=== PATIENT | male | born 1995 | race African-American/Black ===

== ENCOUNTER 2024-04-03 12:12 | Emergency (ER) | payer MEDICAID, SELFPAY ==
[2024-04-03 12:32] VITALS: BP 122/77; PULSE 93; RESP 18; TEMP 37.3; O2SAT 98; BMI 29.3
--- NOTE | 2024-04-03 12:32 | ED_ITS ---
HPI - Anxiety General Chief Complaint: Anxiety Stated Complaint: Anxiety Time Seen by Provider: 04/03/24 13:50 Source: patient and RN notes reviewed Mode of arrival: ambulatory Limitations: no limitations History of Present Illness ED Provider: Silvia Kahn PA-C HPI narrative: This is a 28-year-old male, who presents emergency department, accompanied by his , with complaints of increased stress and depression. He denies any SI or HI. He states that he drinks daily, and has drank daily for many years. no history of alcohol withdrawal. He states that he typically drinks about 1 pt per day, denies ever seeking help for this. Admits to recent stressors over the last several months but does not elaborate further about this. He reports that he occasionally becomes very anxious and develops numbness and tingling in his face - reports that this happened today. No chest pain, shortness of breath, headaches, dizziness, blurred vision, abdominal pain, nausea, vomiting or diarrhea. Denies having a PCP. No SI/HI, no auditory or visual hallucinations. No other complaints or concerns at this time. MD complaint: anxiety History of similar episodes: Yes Provoking factors: emotional stress Relieving factors: nothing Exacerbating factors: nothing Associated symptoms: denies other symptoms Related Data Allergies Allergy/AdvReac Type Severity Reaction Status Date / Time No Known Allergies Allergy Verified 04/03/24 12:34 Review of Systems 2 Review of Systems: Yes all other systems are reviewed and are negative Constitutional: Constitutional: Reports as per HPI [facility] Social History Social History Alcohol intake: current Alcohol intake frequency: 3 or more drinks per day Alcohol type: hard liquor Smoked in Last 30 Days: Yes Advance Directives: No Advance Directives Information Provided: Yes Physical Exam 2 Vital Signs: Vital Signs: Last Vital Signs Temp 98.4 F 04/03/24 16:50 Pulse 92 04/03/24 16:50 Resp 18 04/03/24 16:50 BP 143/95 H 04/03/24 16:50 Pulse Ox 100 04/03/24 16:50 O2 Del Method Room Air 04/03/24 16:50 BMI result Body Mass Index 29.3 Const: General: cooperative, comfortable and no acute distress O rientation/consciousness: patient oriented x3 Limitations: no limitations HEENT: Head: Yes normal to inspection, Yes normocephalic and Yes atraumatic Ears: hearing grossly normal bilaterally General nose exam: Normal external nose present Face and sinus: Yes normal facial exam Mouth: Normal oral and palatal mucosa present, oropharynx normal and moist mucous membranes Throat: Yes posterior oropharynx normal Eyes: General: appearance normal, both eyes and all related structures E yelids: Yes eyelids normal Conjunctivae: conjunctivae normal Sclerae: s clerae normal Pupils: Equal, round and reactive pupils present EOM: EOMs intact bilaterally Neck: Neck: Yes normal visual inspection, Yes full ROM and Yes no lymphadenopathy Lymphatic: no lymphadenopathy noted Chest: Chest palpation & inspection: normal inspection of the chest Resp: Effort & Inspection: normal respiratory effort and able to speak in complete sentences Auscultation: clear to auscultation bilaterally, no crackles, no rales, no rhonchi and no wheezes Cardio: Rate: regular rate Rhythm: regular rhythm Heart sounds: S1 normal heart sound present and S2 normal heart sound present GI: Inspection: Yes normal to inspection Skin: General skin exam: no rashes or lesions noted Trauma: no lacerations or abrasions Wounds: no wounds Neuro: General: patient oriented x3 and moves all extremities Cranial nerves: Yes Equal, round and reactive pupils present Extrem: General: Yes normal to inspection Right upper extremity: normal to inspection Left upper extremity: normal to inspection Right lower extremity: normal to inspection Left lower extremity: normal to inspection Psych: Appearance: grossly normal Mental Status: mental status grossly normal Speech and movement: Normal speech and movement present Affect: n ormal affect Attitude: cooperative Thought process: Normal thought process present Thought content: Normal thought content present Insight: Fair insight present (Psych) Judgement: Fair judgement present (Psych) Course Course Course Narrative: This is a Rapid Medical Examination (RME) performed by Andrez Ramos PA-C in triage. Full HPI, ROS, assessment and treatment plan per primary provider in the Main ED. 28 yo male presents to the ER for evaluation of really bad anxiety for the last 1 month. He is going through a lot of personal things and is depressed with severe anxiety. At work today and had numbness in the face and shaking all over which has been present intermittently over the last month but worse today and he can't function. No SI. No medical or psych history. Endorses ETOH use daily, last was last night. no hx w/d in the past. Plan: medical work up, may need CARE team evaluation for debilitating anxiety Medications Administered Discontinued Medications Generic Name Dose Route Start Last Admin Trade Name Claudio PRN Reason Stop Dose Admin Lorazepam 2 mg 04/03/24 16:09 04/03/24 16:24 Lorazepam 1 Mg Tablet PO 04/03/24 16:10 2 mg ONCE ONE Administration Medical Decision Making Medical Decision Making [facility] Narrative: This is a [id number]-male, with a hx of alcohol use disorder, who presents to the ER with complaints of increased anxiety. He has been under alot of stress lately. Reporting that he drinks 1 pt of hard alcohol daily for years - last drink was yesterday. No hx of known withdrawal. No other drug use. no SI/HI. No CP/SOB. Physical examination with no acute findings. Labs, EKG normal. Discussed workup with patient. Given hx of etoh use and interest for detox/services, pt was seen by the care team. He was cleared by the care team.Pt was seen by Moraima Acosta from addiction medicine and will f/u with outpatient services. He does not appear to be in etoh withdrawal at this time as his only complaint is increased anxiety > he was given ativan. Given strict return precautions. Pt stable for d/c. Differential Diagnosis Differential Diagnoses: The differential diagnosis associated with the presentation includes etoh withdrawal, etoh dependency, depression., anxiety. metabolic derangement Admission/Observation Consideration of admission/observation: Escalation of care including admission/observation considered Escalation of care including admission/observation considered however given workup today not warranted at this time. Lab Data [facility] Lab Attestation statement: I reviewed the patient's lab results. No leukocytosis, H&H stable, UA WNL. drug screen WNL. etoh level <10 04/03/24 13:06 04/03/24 13:06 Labs: Lab Results 04/03/24 Range/Units 13:06 WBC 6.8 (4.8-10.8) X10*3/uL RBC 5.00 (4.60-5.80) X10*6/uL Hgb 15.9 (14.0-18.0) g/dl Hct 45.9 (42.0-52.0) % MCV 91.8 (80.0-98.0) fL MCH 31.8 (27.0-33.0) pg MCHC 34.6 (31.0-36.0) g/dl RDW 11.7 (11.0-16.0) % Plt Count 230 (160-400) X10*3/uL MPV 11.4 (9.4-12.4) fL Immature Gran % (Auto) 0.3 (0.0-0.4) % Neut % (Auto) 82.3 H (45-73) % Lymph % (Auto) 10.2 L (20-40) % [place] % (Auto) 6.9 (2-11) % Eos % (Auto) 0.0 (0-4) % Baso % (Auto) 0.3 (0-2) % Lymph # (Auto) 0.7 L (1.2-4.9) X10*3/uL [place] # (Auto) 0.5 (0.1-1.2) X10*3/uL Eos # (Auto) 0.0 (0.0-0.4) X10*3/uL Baso # (Auto) 0.0 (0.0-0.2) X10*3/uL Abs Immat Gran (auto) 0.02 (0.00-0.03) X10*3/uL Absolute Neuts (auto) 5.6 (2.0-8.3) x10*3/uL Absolute Nucleated RBC 0.000 (0.0-0.012) X10*3/uL Nucleated RBC % (auto) 0.0 (0.0-0.2) /100WBC Sodium 141 (135-145) mmol/L Potassium 4.3 (3.3-5.1) mmol/L Chloride 107 (96-108) mmol/L Carbon Dioxide 24 (22-29) mmol/L Anion Gap 14 (12-20) BUN 10 (9-16) mg/dL Creatinine 1.02 (0.5-1.4) mg/dL Estim Creat Clear Calc 119.6 Estimated GFR > 60 Random Glucose 98 (60-115) mg/dL Calcium 10.1 (8.4-10.2) mg/dL Magnesium 1.9 (1.6-2.6) mg/dL Total Bilirubin 0.6 (0.0-1.0) mg/dL Direct Bilirubin 0.3 (0.0-0.5) mg/dL AST 22 (5-37) U/L ALT 24 (0-40) U/L Alkaline Phosphatase 83 (39-117) U/L Total Protein 7.2 (6.5-8.0) g/dL Albumin 4.4 (3.5-5.0) g/dL Urine Color Yellow Urine Appearance Clear Urine pH >= 9.0 (5.0-9.0) Ur Specific [place] 1.020 (1.005-1.025) Urine Protein 30 (1+) H (Neg-Trace) mg/dL Urine Glucose (UA) Negative (Negative) mg/dL Urine Ketones Negative (Negative) mg/dL Urine Blood Negative (Negative) Urine Nitrite Negative (Negative) Ur Leukocyte Esterase Negative (Negative) Urine RBC 0-2 (0-2) /HPF Urine WBC 0-5 (0-5) /HPF Ur Squamous Epith Cells 0-2 (0-2) /HPF Urine Bacteria None Seen (None Seen) Hyaline Casts 0-2 (0-2) /LPF Urine Opiates Screen Not Detected (Not Detect) Ur Buprenorphine Scrn Not Detected (Not Detect) ng/mL Ur Oxycodone Screen Not Detected (Not Detect) ng/mL Urine Methadone Screen Not Detected (Not Detect) ng/mL Urine Fentanyl Screen Not Detected (Not Detect) Ur Barbiturates Screen Not Detected (Not Detect) Ur Phencyclidine Scrn Not Detected (Not Detect) Ur Amphetamines Screen Not Detected (Not Detect) U Benzodiazepines Scrn Not Detected (Not Detect) Urine Cocaine Screen Not Detected (Not Detect) U Marijuana (THC) Screen Not Detected (Not Detect) Ethyl Alcohol < 10 mg/dL Discharge Plan Discharge Clinical Impression: Acute anxiety, Alcohol use disorder Patient Disposition: Home, Self-Care Instructions: Anxiety (ED), Alcohol Use Disorder (ED) Additional Instructions: You were seen in the emergency department due to increased anxiety as well as alcohol use. Your workup today was reassuring. Please follow-up with the comprehensive care team tomorrow. If any new or worsening symptoms occur including but not limited to chest pain, shortness of breath increased anxiety, please return for re-evaluation. Stand Alone Forms: Work/School Release Interventions: ED Discharge Assessment Last Done: 04/03/24 16:50 Discharge Date/Time: 04/03/24 16:51 Print Language: Welsh
[2024-04-03 13:14] LABS: MANUAL DIFF FLAG NO
[2024-04-03 13:18] LABS: Basophils Percent Auto 0.3 % (0-2); Hematocrit 45.9 % (42.0-52.0); Hemoglobin 15.9 g/dl (14.0-18.0); Imm Gran Abs Auto 0.02 X10*3/uL (0.00-0.03); Imm Gran Pct Auto 0.3 % (0.0-0.4); Lymphocytes Absolute Auto 0.7 X10*3/uL (1.2-4.9); Lymphocytes Percent Auto 10.2 % (20-40); Mean Corpuscular HGB Conc 34.6 g/dl (31.0-36.0); Mean Corpuscular Hemoglobin 31.8 pg (27.0-33.0); Mean Corpuscular Volume 91.8 fL (80.0-98.0); Mean Platelet Volume 11.4 fL (9.4-12.4); Monocytes Absolute Auto 0.5 X10*3/uL (0.1-1.2); Monocytes Percent Auto 6.9 % (2-11); Neutrophils Absolute Auto 5.6 x10*3/uL (2.0-8.3); Neutrophils Percent Auto 82.3 % (45-73); Platelet Count 230 X10*3/uL (160-400); Red Cell Distribution Width 11.7 % (11.0-16.0); White Blood Count 6.8 X10*3/uL (4.8-10.8)
[2024-04-03 13:19] LABS: Appearance Urine Clear; Color Urine Yellow; Glucose Urine UA Negative (Negative); Leukocyte Esterase Urine Negative (Negative); Nitrite Urine Negative (Negative); PH >= 9.0 (5.0-9.0); UMIC TRIGGER UACC YES; Urine Blood Negative (Negative); Urine Ketones Negative (Negative); Urine Protein 30 (1+) mg/dL (Neg-Trace)
[2024-04-03 13:25] LABS: Bacteria Urine None Seen (None Seen); Hyaline Casts Urine 0-2 /LPF (0-2); RBC Urine 0-2 /HPF (0-2); Squamous Epithelial Cell Urine 0-2 /HPF (0-2); WBC Urine 0-5 /HPF (0-5)
--- NOTE | 2024-04-03 13:33 | PC.NURSE ---
patient arrives through external triage from home, complaining of increased drinking and depression and anxiety, requesting detox and to speak with care team. changed over into hospital attire by security, family at bedside took phone, vape and keys,
[2024-04-03 13:35] LABS: Amphetamine Screen Urine Not Detected (Not Detect); Barbiturates, Urine Not Detected (Not Detect); Benzodiazepines Screen Urine Not Detected (Not Detect); Buprenorphine Scr Not Detected (Not Detect); Cannabinoid Screen Urine Not Detected (Not Detect); Cocaine Screen Urine Not Detected (Not Detect); Fentanyl, urine Not Detected (Not Detect); Methadone Screen, Urine Not Detected (Not Detect); Opiate Screen Urine Not Detected (Not Detect); Oxycodone Screen Urine Not Detected (Not Detect); Phencyclidine Screen Urine Not Detected (Not Detect)
[2024-04-03 14:00] VITALS: BP 135/68; PULSE 110; RESP 17; TEMP 36.8; O2SAT 97
[2024-04-03 14:00] LABS: Ethanol < 10 mg/dL
[2024-04-03 14:47] LABS: Alanine Aminotransferase 24 U/L (0-40); Albumin Level 4.4 g/dL (3.5-5.0); Alkaline Phosphatase 83 U/L (39-117); Anion Gap 14 (12-20); Aspartate Amino Transferase 22 U/L (5-37); Bilirubin Direct 0.3 mg/dL (0.0-0.5); Bilirubin Total 0.6 mg/dL (0.0-1.0); Blood Urea Nitrogen 10 mg/dL (9-16); Calcium 10.1 mg/dL (8.4-10.2); Carbon Dioxide 24 mmol/L (22-29); Chloride 107 mmol/L (96-108); Creatinine Clr Calc Pharmacy 119.6; Estimated Glomerular Filt Rate > 60; Glucose Random 98 mg/dL (60-115); Magnesium 1.9 mg/dL (1.6-2.6); Potassium 4.3 mmol/L (3.3-5.1); Sodium 141 mmol/L (135-145); Total Protein 7.2 g/dL (6.5-8.0)
--- NOTE | 2024-04-03 15:12 | MHC.CARE ---
This scenario writer met with patient who is requesting detox. Patient expressed increased depression and anxiety due to alcohol use. Patient reported that he drinks a pint of alcohol every day to every other day. Patient reported that this has been going on for approximately 1 year. Patient reported that his last drink was last night around midnight. Patient does not have a hx of seizures. Patients girlfriend stated that patient has been shaky and not being able to stay still at times. Patient reported that he hasn't been able to sleep due to this. Patient repored that the longest time he went without a drink was a month ago, and didn't drink for a week or 2 and felt crappy during those weeks. Patient denies any SI. Patient was given a patient resource booklet and educated on detox facilities in the area, as well as additional resources. Provider aware of patients symptoms and will evaluate.
[2024-04-03 16:00] VITALS: BP 143/95; PULSE 92; RESP 18; TEMP 36.9; O2SAT 100
[2024-04-03] MEDS: LORazepam 1 MG TABLET 2 MG PO (16:24)
--- NOTE | 2024-04-03 16:29 | MHC.RECOVRN ---
?AUDIT-C Brief Intervention Pt had positive screen for unhealthy alcohol use on admission, subsequently met with t/w to discuss alcohol use and recovery supports/options. Pt voices concern regarding alcohol use and is aware that drinking at unhealthy levels is known to increase risk of alcohol related health problems. Pt reports 1 pint of liquor daily for years . Pt expresses how alcohol use has impacted health, including negative impact on his sleep, and social life. Discussed risk reduction strategies including drinking below the recommended limit. Provided pt with written resources including information on inpatient and outpatient treatment, NIKKIE, harm reduction, and recovery coaching. Pt plans to to present to our office as a walk in for treatment. Pt provided with t/w contact information if questions or concerns arise. Denies other questions or concerns at this time.
[2024-04-03 16:50] VITALS: BP 143/95; PULSE 92; RESP 18; TEMP 36.9; O2SAT 100
== END 2024-04-03 16:51 | disposition home or self-care (01) ==
PROVIDERS: Physician Assistant; Emergency Provider Emergency Medicine
DX: F41.1 Generalized anxiety disorder (principal); F10.10 Alcohol abuse, uncomplicated; Y90.0 Blood alcohol level of less than 20 mg/100 ml; Z63.8 Other specified problems related to primary support group; Z79.899 Other long term (current) drug therapy; Z51.81 Encounter for therapeutic drug level monitoring
CPT/HCPCS: 36415; 80048; 80076; 80307; 81001; 83735; 85025; 99284

== ENCOUNTER 2024-04-04 15:11 | Outpatient (AMB) | payer MEDICAID, SELFPAY ==
--- NOTE | 2024-04-04 15:53 | A.OFFVISCC_ITS ---
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, so he does not drink until later in the evenings is very supportive Was in our ED earlier this week seeking treatment and seen by our Recovery Support RN [facility] Social History Household Members: Significant Other and Children Housing: Apartment Do you presently have visiting nurse or other home services: No Alcohol intake: current Alcohol intake frequency: 3 or more drinks per day Alcohol type: beer and hard liquor Patient Tobacco Use Status: Current everyday Tobacco user Tobacco use type: Cigarette and Smokeless Tobacco Years Smoked: 1 Smoked in Last 30 Days: Yes e-Cigarette/Vaping Use: Currently Using Frequency of e-Cigarette/Vaping Use: daily Patient Interested in Nicotine Replacement: Yes Patient Given Instructions on How to Stop Smoking: Yes Date Education Initiated: 04/13/24 Second Hand Smoke Exposure: No Use of substances other than those prescribed or required for medical reasons: No Currently Displaying Signs/Symptoms of Drug Intoxication Withdrawal: No Any prior treatment program specific to substance use: No Have you been hit, kicked, punched, or otherwise hurt by someone within the past year? If so, by whom?: No Do you feel safe in your current relationship?: Yes Is there a partner from a previous relationship who is making you feel unsafe now?: No Are you made to feel afraid or neglected: No Advance Directives: No Advance Directives Information Provided: No Do you have thoughts of harming others: None Do you have a plan to hurt others: No Plan Recently lost weight without trying: Yes How much weight loss: 24-33 pounds Eating poorly because of decreased appetite: No Nutrition screen score: 5 Nutrition Risks: No Nutritional Risk Poor oral hygiene: No Review of Systems Const Reports as per HPI, Reports difficulty sleeping and Reports lethargy GI Denies melena, Denies loose stools and Denies vomiting Psych Reports anxiety, Reports depression, Reports difficulty concentrating and Reports anhedonia Physical Exam Const General: cooperative, no acute distress, alert, awake, anxious and well groomed Nutritional Appearance: average body habitus Orientation/consciousness: patient oriented x3 Limitations: no limitations Skin General skin exam: no rashes or lesions noted Neuro General: patient oriented x3 Psych Speech and movement: Clear speech present Affect: Blunted affect present Attitude: cooperative Thought process: Normal thought process present Assessment & Plan Assessment & Plan (1) Alcohol use disorder, severe, dependence: Code(s): F10.20 - Alcohol dependence, uncomplicated Category: Medical Plan: * discussed different options for treatment and at this time patient wishes to taper intake with goal of discontinuing * discussed importance of going slowly and monitoring for withdrawal sx * gabapentin to assist with anxiety as he decreases * naltrexone daily * follow up one week with RN Medications: New gabapentin 100 mg PO TID PRN 30 caps 0RF anxiety naltrexone take 1/2 tab daily for 3 days, then increase to one tab daily 50 mg PO DAILY 30 tabs 0RF MAT Intake Nursing Intake Reason for visit: looking to detox off alcohol Are you currently using?: Yes What are you taking?: Alcohol When was your last use?: this morning How much?: 4 nips 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 [place] What is your current relationship status?: Current PCP: None Date of last visit: more than 5 years Referral Source: [facility] Substance Abuse History Substance Abuse History (includes route, frequency and quantity): Marijuana (socially) and Tobacco (Vapes daily) Social History Domestic Violence concerns: No Children: yes 2 Do you have a support system?: Yes family Current mode of transportation?: drives Where are you currently residing?: [place] home [place] Drug Use Have you ever shared needles?: No Have you ever belonged to a needle exchange program?: No Do you buy needles at a pharmacy?: No Have you ever overdosed?: No Have you ever been hospitalized for an overdose?: No Was Naloxone administered?: No Recovery History Have you had any periods of recovery?: No Have you ever had inpatient treatment for your substance abuse disorder?: No Have you been in an inpatient detoxification program?: No Have you been in an inpatient Rehab/[place] house?: No Have you been in an outpatient Methadone Maintenance program?: No Have you been in an outpatient Suboxone Maintenance program?: No Have you been in an AA/NA support program?: No Have you had a Recovery Support Synthetic Staple Extruder?: No Have you had Peer Support?: No Behavioral Health History Do you have a current provider? If so, who?: No History of self harming thoughts?: No History of homicidal or suicidal intentions?: No Medical Conditions Endocarditis?: No Skin Infection: No Seizure related to withdrawal or overdose: No Head or brain injury: No Hepatitis A (if yes, have you been treated?): No Hepatitis B (if yes, have you been treated?): No Hepatitis C (if yes, have you been treated?): No HIV (if yes, have you been treated?): No TB (if yes, have you been treated?): No Other: No Legal History History of incarceration: No Currently on parole or probation: No Court mandated programs: No Pending court cases: No DCF involvement: No
== END 2024-04-04 16:21 | disposition home or self-care (01) ==
PROVIDERS: Visit Provider Nurse Practitioner Psychiatric/Mental Health
DX: F10.20 Alcohol dependence, uncomplicated (principal)
CPT/HCPCS: 99214

== ENCOUNTER → 2024-04-04 15:11 | Outpatient (BNVA) | payer SELFPAY | PROVIDERS: Visit Provider Nurse Practitioner Psychiatric/Mental Health | DX: F10.20 Alcohol dependence, uncomplicated (principal) | CPT/HCPCS: 99212 ==

== ENCOUNTER 2024-04-13 11:50 | Inpatient (IN) | payer OTHER, SELFPAY ==
[2024-04-13 12:16] VITALS: BP 127/96; PULSE 109; RESP 20; TEMP 36.9; O2SAT 96; BMI 28.8
--- NOTE | 2024-04-13 12:16 | ED.ANXIETY ---
HPI - Anxiety General Chief Complaint: Psychiatric Symptoms Stated Complaint: anxiety Time Seen by Provider: 04/13/24 14:08 Related Data Home Medications ?Medication ?Instructions ?Recorded ?Confirmed gabapentin 100 mg capsule 100 mg PO TID PRN anxiety 04/13/24 04/13/24 Previous Rx's ?Medication ?Instructions ?Recorded hydroxyzine pamoate 25 mg capsule 25 mg PO TID PRN itching #20 caps 04/10/24 Allergies Allergy/AdvReac Type Severity Reaction Status Date / Time No Known Allergies Allergy Verified 04/13/24 12:19 [facility] Social History Social History Alcohol intake: current Alcohol intake frequency: 3 or more drinks per day Alcohol type: beer and hard liquor Smoked in Last 30 Days: No Use of substances other than those prescribed or required for medical reasons: Refusing to respond Advance Directives: No Advance Directives Information Provided: No Do you have a plan to hurt others: No Plan Physical Exam Vital Signs: Vital Signs: Last Vital Signs Temp 98.5 F 04/13/24 12:16 Pulse 109 H 04/13/24 12:16 Resp 16 04/13/24 14:14 BP 127/96 H 04/13/24 12:16 Pulse Ox 96 04/13/24 12:16 O2 Del Method Room Air 04/13/24 12:16 BMI result Body Mass Index 28.8 Course Course Course Narrative: This is a Rapid Medical Exam performed in triage by Radha Luna PA-C. Full HPI, ROS and PE to be performed by primary ED provider. 28 yo M with a PMH of alcohol use disorder presenting to the ED c/o increased anxiety. Reports recent stressors at home. Feelings of sadness and depression. Reports daily alcohol use of 12 nips per day. Last drink 5 minutes ago. Denies hx of withdrawl or seizures. Was seen upstairs with addiction medicine prior to arrival to the ED. Patient is interested in detox. Denies SI. PE: sad, soft spoken, nontoxic appearing Plan: Care team, labs, tox screen, detox Reevaluation(s) Reevaluation #1: Head patient is seen by the care team and will be an inpatient admission. He will be sending a conditional voluntary Time: 17:22 Medications Administered Discontinued Medications Generic Name Dose Route Start Last Admin Trade Name Freq PRN Reason Stop Dose Admin Chlordiazepoxide HCl 100 mg 04/13/24 14:09 04/13/24 14:51 Chlordiazepoxide Hcl 25 Mg Capsule PO 04/13/24 14:10 100 mg ONCE ONE Administration Medical Decision Making Medical Decision Making [facility] Narrative: Labs checked patient seemed to be intoxicated with alcohol I will give Librium we will give another 100 Librium at this time patient is still pending care team evaluation was seen by addiction medicine feels the patient will benefit coming inpatient for depression anxiety I will sign out to Dr. Fonseca pending disposition. Differential Diagnosis Differential Diagnoses: The differential diagnosis associated with the presentation includes Alcohol abuse depression anxiety Lab Data 04/13/24 12:34 04/13/24 12:34 Labs: Lab Results 04/13/24 04/13/24 Range/Units 12:34 14:31 WBC 5.6 (4.8-10.8) X10*3/uL RBC 5.19 (4.60-5.80) X10*6/uL Hgb 16.8 (14.0-18.0) g/dl Hct 48.1 (42.0-52.0) % MCV 92.7 (80.0-98.0) fL MCH 32.4 (27.0-33.0) pg MCHC 34.9 (31.0-36.0) g/dl RDW 11.8 (11.0-16.0) % Plt Count 227 (160-400) X10*3/uL MPV 11.0 (9.4-12.4) fL Immature Gran % (Auto) 0.2 (0.0-0.4) % Neut % (Auto) 58.5 (45-73) % Lymph % (Auto) 27.7 (20-40) % [place] % (Auto) 11.8 H (2-11) % Eos % (Auto) 1.4 (0-4) % Baso % (Auto) 0.4 (0-2) % Lymph # (Auto) 1.6 (1.2-4.9) X10*3/uL [place] # (Auto) 0.7 (0.1-1.2) X10*3/uL Eos # (Auto) 0.1 (0.0-0.4) X10*3/uL Baso # (Auto) 0.0 (0.0-0.2) X10*3/uL Abs Immat Gran (auto) 0.01 (0.00-0.03) X10*3/uL Absolute Neuts (auto) 3.3 (2.0-8.3) x10*3/uL Absolute Nucleated RBC 0.000 (0.0-0.012) X10*3/uL Nucleated RBC % (auto) 0.0 (0.0-0.2) /100WBC Sodium 143 (135-145) mmol/L Potassium 4.1 (3.3-5.1) mmol/L Chloride 108 (96-108) mmol/L Carbon Dioxide 24 (22-29) mmol/L Anion Gap 15 (12-20) BUN 11 (9-16) mg/dL Creatinine 0.94 (0.5-1.4) mg/dL Estim Creat Clear Calc 128.8 Estimated GFR > 60 Random Glucose 94 (60-115) mg/dL Calcium 9.6 (8.4-10.2) mg/dL Magnesium 2.1 (1.6-2.6) mg/dL Total Bilirubin 0.4 (0.0-1.0) mg/dL Direct Bilirubin 0.2 (0.0-0.5) mg/dL AST 26 (5-37) U/L ALT 24 (0-40) U/L Alkaline Phosphatase 78 (39-117) U/L Total Protein 7.5 (6.5-8.0) g/dL Albumin 4.5 (3.5-5.0) g/dL Lipase 11 (8-78) U/L Urine Color Yellow Urine Appearance Clear Urine pH 6.5 (5.0-9.0) Ur Specific [place] 1.020 (1.005-1.025) Urine Protein Negative (Neg-Trace) mg/dL Urine Glucose (UA) Negative (Negative) mg/dL Urine Ketones Negative (Negative) mg/dL Urine Blood Negative (Negative) Urine Nitrite Negative (Negative) Ur Leukocyte Esterase Negative (Negative) Salicylates < 5.0 L (15-30) mg/dL Urine Opiates Screen Not Detected (Not Detect) Ur Buprenorphine Scrn Not Detected (Not Detect) ng/mL Ur Oxycodone Screen Not Detected (Not Detect) ng/mL Urine Methadone Screen Not Detected (Not Detect) ng/mL Urine Fentanyl Screen Not Detected (Not Detect) Acetaminophen < 3 (<30) mcg/mL Ur Barbiturates Screen Not Detected (Not Detect) Ur Phencyclidine Scrn Not Detected (Not Detect) Ur Amphetamines Screen Not Detected (Not Detect) U Benzodiazepines Scrn Not Detected (Not Detect) Urine Cocaine Screen Not Detected (Not Detect) U Marijuana (THC) Screen Not Detected (Not Detect) Ethyl Alcohol 244 mg/dL Discharge Plan Discharge Clinical Impression: Alcohol use disorder, severe, dependence, Acute anxiety, Depression Patient Disposition: Admitted As Inpatient Prescriptions: No Action gabapentin 100 mg capsule 100 mg PO TID PRN (Reason: anxiety) hydroxyzine pamoate 25 mg capsule 25 mg PO TID PRN (Reason: itching) Qty: 20 0RF Interventions: [place]-Suicide Risk Severity Scale Last Done: 04/13/24 14:14 Print Language: Divehi
[2024-04-13 12:39] LABS: MANUAL DIFF FLAG NO
[2024-04-13 12:41] LABS: Basophils Percent Auto 0.4 % (0-2); Eosinophils Absolute Auto 0.1 X10*3/uL (0.0-0.4); Eosinophils Percent Auto 1.4 % (0-4); Hematocrit 48.1 % (42.0-52.0); Hemoglobin 16.8 g/dl (14.0-18.0); Imm Gran Abs Auto 0.01 X10*3/uL (0.00-0.03); Imm Gran Pct Auto 0.2 % (0.0-0.4); Lymphocytes Absolute Auto 1.6 X10*3/uL (1.2-4.9); Lymphocytes Percent Auto 27.7 % (20-40); Mean Corpuscular HGB Conc 34.9 g/dl (31.0-36.0); Mean Corpuscular Hemoglobin 32.4 pg (27.0-33.0); Mean Corpuscular Volume 92.7 fL (80.0-98.0); Monocytes Absolute Auto 0.7 X10*3/uL (0.1-1.2); Monocytes Percent Auto 11.8 % (2-11); Neutrophils Absolute Auto 3.3 x10*3/uL (2.0-8.3); Neutrophils Percent Auto 58.5 % (45-73); Platelet Count 227 X10*3/uL (160-400); Red Blood Count 5.19 X10*6/uL (4.60-5.80); Red Cell Distribution Width 11.8 % (11.0-16.0); White Blood Count 5.6 X10*3/uL (4.8-10.8)
[2024-04-13 12:57] LABS: Alanine Aminotransferase 24 U/L (0-40); Albumin Level 4.5 g/dL (3.5-5.0); Alkaline Phosphatase 78 U/L (39-117); Anion Gap 15 (12-20); Aspartate Amino Transferase 26 U/L (5-37); Bilirubin Direct 0.2 mg/dL (0.0-0.5); Bilirubin Total 0.4 mg/dL (0.0-1.0); Blood Urea Nitrogen 11 mg/dL (9-16); Calcium 9.6 mg/dL (8.4-10.2); Carbon Dioxide 24 mmol/L (22-29); Chloride 108 mmol/L (96-108); Creatinine Clr Calc Pharmacy 128.8; Estimated Glomerular Filt Rate > 60; Ethanol 244 mg/dL; Glucose Random 94 mg/dL (60-115); Lipase 11 U/L (8-78); Magnesium 2.1 mg/dL (1.6-2.6); Potassium 4.1 mmol/L (3.3-5.1); Sodium 143 mmol/L (135-145); Total Protein 7.5 g/dL (6.5-8.0)
[2024-04-13 12:58] LABS: Acetaminophen LAB < 3 mcg/mL (<30); Salicylate < 5.0 mg/dL (15-30)
--- NOTE | 2024-04-13 14:10 | ED_ITS ---
HPI - Psych General Chief Complaint: Psychiatric Symptoms Stated Complaint: anxiety Time Seen by Provider: 04/13/24 14:08 Source: patient Mode of arrival: ambulatory Limitations: no limitations History of Present Illness HPI Narrative: 28 year old male past medical history significant for alcohol use and abuse who was requesting detox drank right before coming in Related Data Previous Rx's ?Medication ?Instructions ?Recorded naltrexone 50 mg tablet 50 mg PO DAILY #30 tabs 04/04/24 hydroxyzine pamoate 25 mg capsule 25 mg PO TID PRN itching #20 caps 04/10/24 Allergies Allergy/AdvReac Type Severity Reaction Status Date / Time No Known Allergies Allergy Verified 04/13/24 12:19 Review of Systems 2 Review of Systems: Review of systems: General: Patient denies any fever chills recent illness or falls Musculoskeletal: Denies back pain or body aches or other injuries HEENT: denies headache, runny nose, ear pain Respiratory: denies shortness of breath, cough Cardiovascular: no chest pain or palpitations : denies dysuria, frequency Abdomen: no nausea vomiting denies abdominal pain Extremities: no swelling, no pain Skin: no diaphoresis Yes all other systems are reviewed and are negative PMFSH Social History Social History Alcohol intake: current Alcohol intake frequency: 3 or more drinks per day Alcohol type: hard liquor Do you have a plan to hurt others: No Plan Physical Exam 2 Vital Signs: Vital Signs: Last Vital Signs Temp 98.5 F 04/13/24 12:16 Pulse 109 H 04/13/24 12:16 Resp 20 04/13/24 12:16 BP 127/96 H 04/13/24 12:16 Pulse Ox 96 04/13/24 12:16 O2 Del Method Room Air 04/13/24 12:16 BMI result Body Mass Index 28.8 General: Well-appearing well-nourished in no signs of distress HEENT: Normocephalic atraumatic Neck: No signs of JVD, no masses no tenderness or lymphadenopathy Cardiovascular: Regular rate and rhythm Respiratory: Clear to auscultation bilaterally Abdomen: Soft nontender no masses Extremities: Normal pedal pulses no signs of edema Skin: Dry warm no rashes Back: No tenderness full ROM Medical Decision Making Medical Decision Making MDM Narrative: Labs showed the patient's intoxicated the patient 100 Librium have the patient seen by addiction medicine as well as the care team Differential Diagnosis Differential Diagnoses: The differential diagnosis associated with the presentation includes Alcohol intoxication suicide ideation depression anxiety Admission/Observation Consideration of admission/observation: Escalation of care including admission/observation considered Consult Healthcare Provider Management of the patient was discussed with: Behavioral Health Provider Lab Data [facility] Lab Attestation statement: I reviewed the patient's lab results. 04/13/24 12:34 04/13/24 12:34 Labs: Lab Results 04/13/24 Range/Units 12:34 WBC 5.6 (4.8-10.8) X10*3/uL RBC 5.19 (4.60-5.80) X10*6/uL Hgb 16.8 (14.0-18.0) g/dl Hct 48.1 (42.0-52.0) % MCV 92.7 (80.0-98.0) fL MCH 32.4 (27.0-33.0) pg MCHC 34.9 (31.0-36.0) g/dl RDW 11.8 (11.0-16.0) % Plt Count 227 (160-400) X10*3/uL MPV 11.0 (9.4-12.4) fL Immature Gran % (Auto) 0.2 (0.0-0.4) % Neut % (Auto) 58.5 (45-73) % Lymph % (Auto) 27.7 (20-40) % [place] % (Auto) 11.8 H (2-11) % Eos % (Auto) 1.4 (0-4) % Baso % (Auto) 0.4 (0-2) % Lymph # (Auto) 1.6 (1.2-4.9) X10*3/uL [place] # (Auto) 0.7 (0.1-1.2) X10*3/uL Eos # (Auto) 0.1 (0.0-0.4) X10*3/uL Baso # (Auto) 0.0 (0.0-0.2) X10*3/uL Abs Immat Gran (auto) 0.01 (0.00-0.03) X10*3/uL Absolute Neuts (auto) 3.3 (2.0-8.3) x10*3/uL Absolute Nucleated RBC 0.000 (0.0-0.012) X10*3/uL Nucleated RBC % (auto) 0.0 (0.0-0.2) /100WBC Sodium 143 (135-145) mmol/L Potassium 4.1 (3.3-5.1) mmol/L Chloride 108 (96-108) mmol/L Carbon Dioxide 24 (22-29) mmol/L Anion Gap 15 (12-20) BUN 11 (9-16) mg/dL Creatinine 0.94 (0.5-1.4) mg/dL Estim Creat Clear Calc 128.8 Estimated GFR > 60 Random Glucose 94 (60-115) mg/dL Calcium 9.6 (8.4-10.2) mg/dL Magnesium 2.1 (1.6-2.6) mg/dL Total Bilirubin 0.4 (0.0-1.0) mg/dL Direct Bilirubin 0.2 (0.0-0.5) mg/dL AST 26 (5-37) U/L ALT 24 (0-40) U/L Alkaline Phosphatase 78 (39-117) U/L Total Protein 7.5 (6.5-8.0) g/dL Albumin 4.5 (3.5-5.0) g/dL Lipase 11 (8-78) U/L Salicylates < 5.0 L (15-30) mg/dL Acetaminophen < 3 (<30) mcg/mL Ethyl Alcohol 244 mg/dL External Record Review External record reviewed: Inpatient record, Office record, Outpatient record, Prior outpatient labs and Prior outpatient radiology Discharge Plan Discharge Prescriptions: No Action naltrexone 50 mg tablet 50 mg PO DAILY Qty: 30 0RF Rx Instructions: take 1/2 tab daily for 3 days, then increase to one tab daily hydroxyzine pamoate 25 mg capsule 25 mg PO TID PRN (Reason: itching) Qty: 20 0RF Print Language: Kinyarwanda
[2024-04-13 14:14] VITALS: RESP 16
[2024-04-13 14:45] LABS: Appearance Urine Clear; Color Urine Yellow; Glucose Urine UA Negative (Negative); Leukocyte Esterase Urine Negative (Negative); Nitrite Urine Negative (Negative); PH 6.5 (5.0-9.0); Urine Blood Negative (Negative); Urine Ketones Negative (Negative); Urine Protein Negative (Neg-Trace)
[2024-04-13 14:47] LABS: Amphetamine Screen Urine Not Detected (Not Detect); Barbiturates, Urine Not Detected (Not Detect); Benzodiazepines Screen Urine Not Detected (Not Detect); Buprenorphine Scr Not Detected (Not Detect); Cannabinoid Screen Urine Not Detected (Not Detect); Cocaine Screen Urine Not Detected (Not Detect); Fentanyl, urine Not Detected (Not Detect); Methadone Screen, Urine Not Detected (Not Detect); Opiate Screen Urine Not Detected (Not Detect); Oxycodone Screen Urine Not Detected (Not Detect); Phencyclidine Screen Urine Not Detected (Not Detect)
[2024-04-13] MEDS: chlordiazePOXIDE HCl 25 MG CAPSULE 100 MG PO (14:51)
--- NOTE | 2024-04-13 16:19 | PC.NURSE ---
Ludwin presents to the ED waiting room due to heavy reliance on alcohol secondary to increased anxiety and depression. He reports that he has been drinking heavily for years and had a recent uptick due to anxiety. He denies a hx of alcohol withdrawal. He does report that he sees addiction medicine here at [facility]. Pt is calm and cooperative, help seeking, offering no complaints at this time. Pt aware of plan of care for CARE team assessment
--- NOTE | 2024-04-13 16:26 | MHC.CARE ---
oil fire specialist collaborated with CARE Team to let us know that patient's substance use is being driven by his unmanaged anxiety and depression. He is help-seeking and would likely benefit from an IPLOC admission per RN. CARE Team assessment pending.
[2024-04-13 19:48] VITALS: BP 132/89; PULSE 84; RESP 18; TEMP 37.1; O2SAT 97
--- NOTE | 2024-04-13 19:56 | PC.NURSE ---
patient appears to remain at rest presently, receiving visit who is about to leave appears in no distress. patients girfriend taking keys and wallet home.
[2024-04-13] MEDS: LORazepam 0.5 MG TABLET PO (21:25)
[2024-04-13 22:15] VITALS: BP 138/94; PULSE 104; RESP 18; TEMP 36.9; O2SAT 99
--- NOTE | 2024-04-13 23:05 | PC.ADMIT ---
Ludwin was admitted from the [facility] for depression D/O, anxiety D/O and ETOH abuse. patient has stated that he has had increased symptoms of depression and anxiety in relationship to his ongoing and worsening Alcohol abuse. He endorses consuming 10 to 12 nips or more daily. he stated he has had a loss of appetite resulting a 30lb weight loss in the past month r/t increased alcohol consumption. He denies any recent life changes or recent stresses. He denies any medical concerns and confirms that he has no primary care physician or psychiatric providers. He endorses that his housing is stable and he intends to return to his home with his girlfriend and children after discharge. Ludwin has stated that upon discharge he will need an excuse note for work r/t hospitalization. Patients admission has been completed, all admission documents signed, addictions medicine consultation and nutrition consultation generated.
[2024-04-13 23:34] VITALS: BMI 28.9
[2024-04-13] MEDS: LORazepam 1 MG TABLET PO (23:45)
[2024-04-13] MEDS: Thiamine HCL 100 MG TABLET PO (23:45)
[2024-04-13] MEDS: traZODone HCL 50 MG TABLET PO (23:45)
[2024-04-13] MEDS: Gabapentin 300 MG CAPSULE PO (23:45)
[2024-04-14 07:56] VITALS: BP 134/86; PULSE 94; RESP 16; TEMP 36.5; O2SAT 97
[2024-04-14] MEDS: Thiamine HCL 100 MG TABLET PO (08:12)
[2024-04-14] MEDS: LORazepam 1 MG TABLET PO ×3 (08:12→20:12)
[2024-04-14 09:49] LABS: Alanine Aminotransferase 22 U/L (0-40); Albumin Level 3.9 g/dL (3.5-5.0); Alkaline Phosphatase 79 U/L (39-117); Anion Gap 12 (12-20); Aspartate Amino Transferase 23 U/L (5-37); Bilirubin Total 0.5 mg/dL (0.0-1.0); Blood Urea Nitrogen 12 mg/dL (9-16); Calcium 9.5 mg/dL (8.4-10.2); Carbon Dioxide 27 mmol/L (22-29); Chloride 106 mmol/L (96-108); Cholesterol 146 mg/dL (<200); Estimated Glomerular Filt Rate > 60; Glucose Fasting 108 mg/dL (60-99); HDL Cholesterol 79 mg/dL (>40); LDL Cholesterol Calculated 52 mg/dL (<100); Potassium 3.5 mmol/L (3.3-5.1); Sodium 141 mmol/L (135-145); Total Protein 6.5 g/dL (6.5-8.0); Triglycerides 77 mg/dL (<150)
[2024-04-14 10:06] LABS: Thyroid Stimulating Hormone 0.77 uIU/mL (0.32-4.0)
--- NOTE | 2024-04-14 10:10 | HO.PSYADMNOT ---
HPI Date of Service: 04/14/24 Chief Complaint: Depression alcohol withdrawal Sources of Information: patient interviewed, chart reviewed and crisis/core team assessment reviewed HPI Subjective Notes: [place]ett Warning and Conditional Voluntary Narrative: Patient is a 28-year-old male with history of alcohol use disorder who presented to the ER following an appointment at the [facility] d/t increased alcohol use secondary to increased depressive symptoms. Per crisis report, patient reported that due to an increase in depression and anxiety, patient has been self medicating with alcohol. Patient reported feelings of helpless and hopelessness. He endorsed poor sleep and appetite, resulting in weight loss and lack of motivation and interest in doing things that he previously enjoyed. denied SI/HI/VH/AH. Patient did not disclose specific precipitating factors of increase in depressive symptoms. denies hx of inpatient psychiatric admissions. Patient reported he recently attempted to admit himself to [facility] for detox but did not complete treatment as he did not feel supported by staff. Patient reports he does not have outpatient psychiatric providers. denied other substance use outside of alcohol. During admission assessment, patient presents alert and oriented x3. Calm and cooperative. Patient stated, I have anxiety and depression, which causes me to drink . Patient guarded during assessment; he reports that a situation between him and his girlfriend has contributed to his increased depression. Patient stated, I don't want to talk about it . Patient reports he is able to return home. denies history of psychiatric care. Denies SA/SIB. He reports drinking 12 nips daily for the past year. Denies any other substance use. Patient denies SI/HI/VH/AH. He was recently seen at the [facility] by Ofelia Pan NP. Past Psychiatric History: Denies. Medical Evaluation Reviewed: Yes PMFSH Family History: Denies Social History: Lives with girlfriend, 2 kids (3 & 8 y/o), works full-time as a cook. High school diploma. Substance History: Patient reports drinking 12 nips daily for the past year. Denies history of withdrawal seizures. Denies any other substance use. Trauma History: Denies Diagnostics Vital Signs (24Hr): Vital Signs - 24 hr 04/13/24 12:16 04/13/24 14:14 04/13/24 19:48 Temperature 98.5 F 98.7 F Pulse Rate 109 H 84 Respiratory Rate 20 16 18 Blood Pressure 127/96 H 132/89 Pulse Oximetry 96 97 Oxygen Delivery Method Room Air Room Air 04/13/24 22:15 04/14/24 07:56 Temperature 98.5 F 97.7 F Pulse Rate 104 H 94 Respiratory Rate 18 16 Blood Pressure 138/94 H 134/86 Pulse Oximetry 99 97 Oxygen Delivery Method Room Air Room Air BMI result Body Mass Index 28.9 Labs 04/13/24 12:34 04/14/24 08:34 Labs: Laboratory Results - last 48 hr 04/13/24 04/13/24 04/14/24 12:34 14:31 08:34 WBC 5.6 RBC 5.19 Hgb 16.8 Hct 48.1 MCV 92.7 MCH 32.4 MCHC 34.9 RDW 11.8 Plt Count 227 MPV 11.0 Immature Gran % (Auto) 0.2 Neut % (Auto) 58.5 Lymph % (Auto) 27.7 [place] % (Auto) 11.8 H Eos % (Auto) 1.4 Baso % (Auto) 0.4 Lymph # (Auto) 1.6 [place] # (Auto) 0.7 Eos # (Auto) 0.1 Baso # (Auto) 0.0 Abs Immat Gran (auto) 0.01 Absolute Neuts (auto) 3.3 Absolute Nucleated RBC 0.000 Nucleated RBC % (auto) 0.0 Sodium 143 141 Potassium 4.1 3.5 Chloride 108 106 Carbon Dioxide 24 27 Anion Gap 15 12 BUN 11 12 Creatinine 0.94 0.97 Estim Creat Clear Calc 128.8 125.0 Estimated GFR > 60 > 60 Random Glucose 94 Fasting Glucose 108 H Calcium 9.6 9.5 Magnesium 2.1 Total Bilirubin 0.4 0.5 Direct Bilirubin 0.2 AST 26 23 ALT 24 22 Alkaline Phosphatase 78 79 Total Protein 7.5 6.5 Albumin 4.5 3.9 Triglycerides 77 Cholesterol 146 LDL Cholesterol, Calc 52 HDL Cholesterol 79 Lipase 11 TSH 0.77 Free T4 0.90 Urine Color Yellow Urine Appearance Clear Urine pH 6.5 Ur Specific [place] 1.020 Urine Protein Negative Urine Glucose (UA) Negative Urine Ketones Negative Urine Blood Negative Urine Nitrite Negative Ur Leukocyte Esterase Negative Salicylates < 5.0 L Urine Opiates Screen Not Detected Ur Buprenorphine Scrn Not Detected Ur Oxycodone Screen Not Detected Urine Methadone Screen Not Detected Urine Fentanyl Screen Not Detected Acetaminophen < 3 Ur Barbiturates Screen Not Detected Ur Phencyclidine Scrn Not Detected Ur Amphetamines Screen Not Detected U Benzodiazepines Scrn Not Detected Urine Cocaine Screen Not Detected U Marijuana (THC) Screen Not Detected Ethyl Alcohol 244 Meds/Allergies Meds Home Medications ?Medication ?Instructions ?Recorded ?Confirmed ?Type gabapentin 100 mg capsule 100 mg PO TID PRN anxiety 04/13/24 04/13/24 History Allergies Allergies Allergy/AdvReac Type Severity Reaction Status Date / Time No Known Allergies Allergy Verified 04/13/24 12:19 Mental Status Exam Mental Status Exam Narrative: Pt is alert and oriented; behavior is cooperative,calm, guarded; dressed in casual attire; mood is described as anxious and depressed ; eye contact appropriate; Speech is normal rate, volume and not pressured; thought process is organized; Thought content is on tx; otherwise pertinent to relevant topics and without any delusional content, paranoid ideations or grandiosity; denies SI/HI/VH/AH. Assessment & Plan Assessment & Plan (1) MDD (major depressive disorder), recurrent episode: Status: Acute Code(s): F33.9 - Major depressive disorder, recurrent, unspecified (2) Alcohol use disorder, severe, dependence: Status: Acute Code(s): F10.20 - Alcohol dependence, uncomplicated Plan Patient is a 28-year-old male with history of alcohol use disorder who presented to the ER following an appointment at the [facility] at [facility] d/t increased alcohol use secondary to increased depressive symptoms. Plan: CV 15 minute safety checks CIWA Continue: Ativan 1mg PO TID Gabapentin 300mg PO bedtime Encourage groups Referral to outpatient psychiatric providers Discharge planning Patient educated on: diagnosis, medication risk/benefits, substance abuse and therapeutic strategies Informed Consent: understands Reason for continued inpatient stay Substantial Risk for: med/psych decompensation Statement Statement: I have reviewed the history and physical and performed a pertinent examination on my patient. No changes have occurred unless specified. If the History and Physical was not performed prior to admission, the Hospitalist's service will be consulted for completing the admission physical. Time Spent With Patient Time: Total time managing care of this patient today _60___ minutes.
[2024-04-14 10:19] LABS: Folate 5.6 ng/mL (> or = 4.0); Vitamin B12 254 pg/mL (200-900)
[2024-04-14] MEDS: Nicotine Polacrilex 2 MG GUM BUCCAL ×3 (11:00→20:13)
[2024-04-14 20:00] VITALS: BP 150/100; PULSE 116; RESP 18; TEMP 36.9; O2SAT 97
[2024-04-14] MEDS: Gabapentin 300 MG CAPSULE PO (20:11)
[2024-04-14] MEDS: traZODone HCL 50 MG TABLET PO (20:13)
[2024-04-15] MEDS: traZODone HCL 50 MG TABLET PO ×2 (02:27→21:07)
[2024-04-15 07:41] VITALS: BP 141/94; PULSE 79; RESP 16; TEMP 36.4; O2SAT 99
[2024-04-15] MEDS: Nicotine 21 MG PATCH.TD24 TRANSDERMA (08:49)
[2024-04-15] MEDS: LORazepam 1 MG TABLET PO ×2 (08:49→21:07)
[2024-04-15] MEDS: Thiamine HCL 100 MG TABLET PO (08:49)
--- NOTE | 2024-04-15 09:01 | P.PNPSI_ITS ---
Subjective Subjective Date of Service: 04/15/24 Reason For Visit: Depression alcohol withdrawal Subjective Notes: Conditional Voluntary Interim History: Reviewed with Dr. Hager. Keeping to self. Patient reports feeling tired today. Patient stated, my anxiety is better. I'm not shaking. My depression is coming from my girlfriend being unfaithful . Per nursing, patient slept 7 hours last night. Continue CIWA. Start: Remeron 7.5mg PO bedtime Decrease scheduled Ativan to 1mg PO BID Medication Compliance: Yes Side effects from medications: No Attending Groups: No Review of Systems Constitutional: Reports as per HPI Eyes: Reports as per HPI Reports as per HPI Cardiovascular: Reports as per HPI Respiratory: Reports as per HPI Gastrointestinal: Reports as per HPI Genitourinary: Reports as per HPI Musculoskeletal: Reports as per HPI Skin/Breast: Reports as per HPI Reports as per HPI Psychiatric: Reports as per HPI Endocrine: Reports as per HPI Hematologic/Lymphatic: Reports as per HPI Allergic/Immunologic: Reports as per HPI Mental Status Exam Mental Status Exam Narrative: Pt is alert and oriented; behavior is cooperative,calm, guarded; dressed in casual attire; mood is described as anxious and depressed ; eye contact appropriate; Speech is normal rate, volume and not pressured; thought process is organized; Thought content is on tx; otherwise pertinent to relevant topics and without any delusional content, paranoid ideations or grandiosity; denies SI/HI/VH/AH. Diagnostics Vital Signs (24Hr): Vital Signs - 24 hr 04/14/24 20:00 04/15/24 07:41 Temperature 98.5 F 97.6 F Pulse Rate 116 H 79 Respiratory Rate 18 16 Blood Pressure 150/100 H 141/94 H Pulse Oximetry 97 99 Oxygen Delivery Method Room Air Room Air BMI result Body Mass Index 28.9 Labs 04/13/24 12:34 04/14/24 08:34 Labs: Laboratory Results - last 48 hr 04/13/24 04/13/24 04/14/24 12:34 14:31 08:34 WBC 5.6 RBC 5.19 Hgb 16.8 Hct 48.1 MCV 92.7 MCH 32.4 MCHC 34.9 RDW 11.8 Plt Count 227 MPV 11.0 Immature Gran % (Auto) 0.2 Neut % (Auto) 58.5 Lymph % (Auto) 27.7 [place] % (Auto) 11.8 H Eos % (Auto) 1.4 Baso % (Auto) 0.4 Lymph # (Auto) 1.6 [place] # (Auto) 0.7 Eos # (Auto) 0.1 Baso # (Auto) 0.0 Abs Immat Gran (auto) 0.01 Absolute Neuts (auto) 3.3 Absolute Nucleated RBC 0.000 Nucleated RBC % (auto) 0.0 Sodium 143 141 Potassium 4.1 3.5 Chloride 108 106 Carbon Dioxide 24 27 Anion Gap 15 12 BUN 11 12 Creatinine 0.94 0.97 Estim Creat Clear Calc 128.8 125.0 Estimated GFR > 60 > 60 Random Glucose 94 Fasting Glucose 108 H Calcium 9.6 9.5 Magnesium 2.1 Total Bilirubin 0.4 0.5 Direct Bilirubin 0.2 AST 26 23 ALT 24 22 Alkaline Phosphatase 78 79 Total Protein 7.5 6.5 Albumin 4.5 3.9 Triglycerides 77 Cholesterol 146 LDL Cholesterol, Calc 52 HDL Cholesterol 79 Lipase 11 Vitamin B12 254 Folate 5.6 TSH 0.77 Free T4 0.90 Urine Color Yellow Urine Appearance Clear Urine pH 6.5 Ur Specific [place] 1.020 Urine Protein Negative Urine Glucose (UA) Negative Urine Ketones Negative Urine Blood Negative Urine Nitrite Negative Ur Leukocyte Esterase Negative Salicylates < 5.0 L Urine Opiates Screen Not Detected Ur Buprenorphine Scrn Not Detected Ur Oxycodone Screen Not Detected Urine Methadone Screen Not Detected Urine Fentanyl Screen Not Detected Acetaminophen < 3 Ur Barbiturates Screen Not Detected Ur Phencyclidine Scrn Not Detected Ur Amphetamines Screen Not Detected U Benzodiazepines Scrn Not Detected Urine Cocaine Screen Not Detected U Marijuana (THC) Screen Not Detected Ethyl Alcohol 244 Medications Medications Current Medications Acetaminophen (Acetaminophen 325 Mg Tablet) 650 mg PO Q6H PRN PRN Reason: Headache/Pain Mild Scale (1-3) Al Hydroxide/Mg Hydroxide (Magnesium Hydrox/Alum Hydrox 30 Ml Oral.Susp) 30 ml PO Q6H PRN PRN Reason: Heartburn/Nausea Gabapentin (Gabapentin 300 Mg Capsule) 300 mg PO BEDTIME GUILLERMO Last Admin: 04/14/24 20:11 Dose: 300 mg Hydroxyzine HCl (Hydroxyzine Hcl 25 Mg Tablet) 25 mg PO Q6H PRN PRN Reason: Anxiety Lorazepam (Lorazepam 1 Mg Tablet) 1 mg PO Q2H PRN PRN Reason: CIWA 8-11 Lorazepam (Lorazepam 1 Mg Tablet) 2 mg PO Q2H PRN PRN Reason: CIWA 12-15 Lorazepam (Lorazepam 1 Mg Tablet) 3 mg PO Q2H PRN PRN Reason: CIWA > 15, and call Lorazepam (Lorazepam 1 Mg Tablet) 1 mg PO TID [facility] Last Admin: 04/15/24 08:49 Dose: 1 mg Magnesium Hydroxide (Milk Of Magnesia 30 Ml Oral.Susp) 30 ml PO DAILY PRN PRN Reason: Constipation Nicotine (Nicotine 21 Mg Patch.Td24) 21 mg TRANSDERMA DAILY [facility] Last Admin: 04/15/24 08:49 Dose: 21 mg Nicotine Polacrilex (Nicotine Polacrilex 2 Mg Gum) 2 mg BUCCAL Q2H PRN PRN Reason: Nicotine Cravings Last Admin: 04/14/24 20:13 Dose: 2 mg Ondansetron HCl (Ondansetron Odt 8 Mg Tab.Rapdis) 8 mg TRANSLINGU Q8H PRN PRN Reason: Nausea and Vomiting Thiamine HCl (Thiamine Hcl 100 Mg Tablet) 100 mg PO DAILY [facility] Last Admin: 04/15/24 08:49 Dose: 100 mg Trazodone HCl (Trazodone Hcl 50 Mg Tablet) 50 mg PO BEDTIME MRX1 PRN PRN Reason: Insomnia Last Admin: 04/15/24 02:27 Dose: 50 mg Allergies Allergies Allergy/AdvReac Type Severity Reaction Status Date / Time No Known Allergies Allergy Verified 04/13/24 12:19 Assessment & Plan Assessment & Plan (1) MDD (major depressive disorder), recurrent episode: Status: Acute Code(s): F33.9 - Major depressive disorder, recurrent, unspecified (2) Alcohol use disorder, severe, dependence: Status: Acute Code(s): F10.20 - Alcohol dependence, uncomplicated Plan Patient is a 28-year-old male with history of alcohol use disorder who presented to the ER following an appointment at the [facility] at [facility] d/t increased alcohol use secondary to increased depressive symptoms. Plan: CV 15 minute safety checks CIWA Continue: Ativan 1mg PO TID Gabapentin 300mg PO bedtime Encourage groups Referral to outpatient psychiatric providers Discharge planning 04/15: Keeping to self. Patient reports feeling tired today. Patient stated, my anxiety is better. I'm not shaking. My depression is coming from my girlfriend being unfaithful . Per nursing, patient slept 7 hours last night. Continue CIWA. Start: Remeron 7.5mg PO bedtime Decrease scheduled Ativan to 1mg PO BID Patient educated on: diagnosis and medication risk/benefits Reason for continued inpatient stay Substantial Risk for: med/psych decompensation Time Spent With Patient Time: Total time managing care of this patient today _20___ minutes.
[2024-04-15] MEDS: Nicotine Polacrilex 2 MG GUM BUCCAL ×3 (12:49→21:08)
[2024-04-15] MEDS: hydrOXYzine HCL 25 MG TABLET PO (16:29)
[2024-04-15 20:00] VITALS: BP 139/76; PULSE 95; RESP 16; TEMP 36.9; O2SAT 99
[2024-04-15] MEDS: Gabapentin 300 MG CAPSULE PO (21:07)
[2024-04-15] MEDS: Mirtazapine 7.5 MG TABLET PO (21:08)
[2024-04-16 07:49] VITALS: BP 150/73; PULSE 100; RESP 16; TEMP 36.9; O2SAT 97
[2024-04-16] MEDS: Nicotine 21 MG PATCH.TD24 TRANSDERMA (08:32)
[2024-04-16] MEDS: LORazepam 1 MG TABLET PO ×2 (08:32→22:34)
[2024-04-16] MEDS: Thiamine HCL 100 MG TABLET PO (08:32)
--- NOTE | 2024-04-16 14:41 | MHC.CLN ---
NUTRITION CONSULT FOR REPORTED 30# WEIGHT LOSS X ONE MONTH. REVIEW OF WEIGH HX SHOWS WEIGHT STABLE X 10 DAYS. NO OTHER WEIGHTS VIEWED. PATIENT WITH ETOH USE DISORDER WITH RECENT REPORTED INCREASE IN DEPRESSION AND ANXIETY. ADDING ENSURE BID TO IMPROVE NUTRITIONAL INTAKE. SUPPLEMENT PROVIDES 700 KCALS, 40 G PROTEIN. PLEASE CONSULT RD IF POOR PO.
--- NOTE | 2024-04-16 15:36 | MHC.RECOVRN ---
AUDIT-C Brief Intervention Pt had positive screen for unhealthy alcohol use on admission, subsequently met with t/w to discuss alcohol use and recovery supports/options. This tech writer met with patient to discuss current alcohol use and concerns related to increased risk of alcohol related problems.? Pt reports 10-12 nips vodka daily x 1.5 months. Prior to that pt reports drinking 5-6 nips plus 1 24 ounce beer daily. Discussed how alcohol use has impacted health, including negative impact on mental health. Withdrawal History: reports anxiety is biggest withdrawal symptoms, denies hx seizures Treatment History: no inpatient treatment, is currently a pt of the [facility] Supports:?parents and girlfriend Discussed risk reduction strategies including drinking below the recommended limit. Provided pt with written resources including information on inpatient and outpatient treatment, NIKKIE, harm reduction, and recovery coaching. Pt plans to continue care with the [facility] and meet with community living coach this evening. Pt provided with t/w contact information if questions or concerns arise. Denies other questions or concerns at this time.?
[2024-04-16] MEDS: Nicotine Polacrilex 2 MG GUM BUCCAL ×2 (16:55→21:18)
--- NOTE | 2024-04-16 16:56 | P.PNPSI_ITS ---
Subjective Subjective Date of Service: 04/16/24 Reason For Visit: Depression alcohol withdrawal Subjective Notes: Conditional Voluntary Interim History: Reviewed with Dr. Hager. Keeping to self. Patient reports feeling tired today. Patient stated, my anxiety is better. I'm not shaking. My depression is coming from my girlfriend being unfaithful . Per nursing, patient slept 7 hours last night. Continue CIWA. Start: Remeron 7.5mg PO bedtime Decrease scheduled Ativan to 1mg PO BID 04/16/2024 Patient with improving mood denies active SI detox has been unremarkable sleep improved agreeable to discussion regarding naltrexone Medication Compliance: Yes Side effects from medications: No Attending Groups: No Review of Systems Medical Review of Systems: unchanged Mental Status Exam Mental Status Exam Narrative: Pt is alert and oriented; behavior is cooperative,calm, guarded; dressed in casual attire; mood is described as anxious and depressed affect appropriate eye contact appropriate; Speech is normal rate, volume and not pressured; thought process is organized; Thought content is on tx and betrayal by girlfriend; otherwise pertinent to relevant topics and without any delusional content, paranoid ideations or grandiosity; denies SI/HI/VH/AH. States he is motivated for sobriety Diagnostics Vital Signs (24Hr): Vital Signs - 24 hr 04/15/24 20:00 04/16/24 07:49 Temperature 98.4 F 98.4 F Pulse Rate 95 100 Respiratory Rate 16 16 Blood Pressure 139/76 150/73 H Pulse Oximetry 99 97 Oxygen Delivery Method Room Air Room Air BMI result Body Mass Index 28.9 Labs 04/13/24 12:34 04/14/24 08:34 Medications Medications Current Medications Acetaminophen (Acetaminophen 325 Mg Tablet) 650 mg PO Q6H PRN PRN Reason: Headache/Pain Mild Scale (1-3) Al Hydroxide/Mg Hydroxide (Magnesium Hydrox/Alum Hydrox 30 Ml Oral.Susp) 30 ml PO Q6H PRN PRN Reason: Heartburn/Nausea Gabapentin (Gabapentin 300 Mg Capsule) 300 mg PO BEDTIME GUILLERMO Last Admin: 04/15/24 21:07 Dose: 300 mg Hydroxyzine HCl (Hydroxyzine Hcl 25 Mg Tablet) 25 mg PO Q6H PRN PRN Reason: Anxiety Last Admin: 04/15/24 16:29 Dose: 25 mg Lorazepam (Lorazepam 1 Mg Tablet) 1 mg PO Q2H PRN PRN Reason: CIWA 8-11 Lorazepam (Lorazepam 1 Mg Tablet) 2 mg PO Q2H PRN PRN Reason: CIWA 12-15 Lorazepam (Lorazepam 1 Mg Tablet) 3 mg PO Q2H PRN PRN Reason: CIWA > 15, and call Lorazepam (Lorazepam 1 Mg Tablet) 1 mg PO BID [facility] Last Admin: 04/16/24 08:32 Dose: 1 mg Magnesium Hydroxide (Milk Of Magnesia 30 Ml Oral.Susp) 30 ml PO DAILY PRN PRN Reason: Constipation Mirtazapine (Mirtazapine 7.5 Mg Tablet) 7.5 mg PO BEDTIME [facility] Last Admin: 04/15/24 21:08 Dose: 7.5 mg Nicotine (Nicotine 21 Mg Patch.Td24) 21 mg TRANSDERMA DAILY [facility] Last Admin: 04/16/24 08:32 Dose: 21 mg Nicotine Polacrilex (Nicotine Polacrilex 2 Mg Gum) 2 mg BUCCAL Q2H PRN PRN Reason: Nicotine Cravings Last Admin: 04/16/24 16:55 Dose: 2 mg Ondansetron HCl (Ondansetron Odt 8 Mg Tab.Rapdis) 8 mg TRANSLINGU Q8H PRN PRN Reason: Nausea and Vomiting Thiamine HCl (Thiamine Hcl 100 Mg Tablet) 100 mg PO DAILY [facility] Last Admin: 04/16/24 08:32 Dose: 100 mg Trazodone HCl (Trazodone Hcl 50 Mg Tablet) 50 mg PO BEDTIME MRX1 PRN PRN Reason: Insomnia Last Admin: 04/15/24 21:07 Dose: 50 mg Allergies Allergies Allergy/AdvReac Type Severity Reaction Status Date / Time No Known Allergies Allergy Verified 04/13/24 12:19 Assessment & Plan Assessment & Plan (1) MDD (major depressive disorder), recurrent episode: Status: Acute Code(s): F33.9 - Major depressive disorder, recurrent, unspecified (2) Alcohol use disorder, severe, dependence: Status: Acute Code(s): F10.20 - Alcohol dependence, uncomplicated Plan Patient is a 28-year-old male with history of alcohol use disorder who presented to the ER following an appointment at [facility] [place] [facility] [place]t increased alcohol use secondary to increased depressive symptoms. Plan: CV 15 minute safety checks CIWA Continue: Ativan 1mg PO TID Gabapentin 300mg PO bedtime Encourage groups Referral to outpatient psychiatric providers Discharge planning 04/15: Keeping to self. Patient reports feeling tired today. Patient stated, my anxiety is better. I'm not shaking. My depression is coming from my girlfriend being unfaithful . Per nursing, patient slept 7 hours last night. Continue CIWA. Start: Remeron 7.5mg PO bedtime Decrease scheduled Ativan to 1mg PO BID 04/16/2024 Continue Remeron lower lorazepam check liver function test would start naltrexone might benefit from Vivitrol Might benefit from PHP if work allows if not evening IOP might be a good discharge plan at Patient educated on: diagnosis, medication risk/benefits and substance abuse Informed Consent: understands Reason for continued inpatient stay Substantial Risk for: harm to self and rapid decompensation Time Spent With Patient Time: Total time managing care of this patient today _25__ minutes.
--- NOTE | 2024-04-16 19:10 | MHC.RECOVSUP ---
? Reason for consult Recovery Support o Current location: 323-3 o Identified substance use concern: Alcohol - Support ? Intervention: o Community resources provided o Harm reduction discussion ? Plan: o Patient to follow up with [facility] after discharge ? Additional information: Met with patient and we talked about recovery and the different pathways.. We also talked about harm reduction and recovery coaching
[2024-04-16] MEDS: Magnesium Hydrox/Alum Hydrox 30 ML ORAL.SUSP PO (20:08)
[2024-04-16 21:22] VITALS: BP 128/77; PULSE 99; RESP 16; TEMP 36.9; O2SAT 99
[2024-04-16] MEDS: Mirtazapine 7.5 MG TABLET PO (22:33)
[2024-04-16] MEDS: Gabapentin 300 MG CAPSULE PO (22:33)
[2024-04-16] MEDS: traZODone HCL 50 MG TABLET PO (22:34)
[2024-04-16] MEDS: hydrOXYzine HCL 25 MG TABLET PO (22:34)
[2024-04-17 07:10] VITALS: BP 123/82; PULSE 98; RESP 14; TEMP 36.3; O2SAT 99
[2024-04-17] MEDS: Nicotine 21 MG PATCH.TD24 TRANSDERMA (08:26)
[2024-04-17] MEDS: Thiamine HCL 100 MG TABLET PO (08:27)
[2024-04-17] MEDS: Nicotine Polacrilex 2 MG GUM BUCCAL ×2 (08:30→16:52)
[2024-04-17] MEDS: LORazepam 1 MG TABLET PO (08:30)
--- NOTE | 2024-04-17 09:56 | P.PNPSI_ITS ---
Subjective Subjective Date of Service: 04/17/24 Reason For Visit: Depression alcohol withdrawal Subjective Notes: 3 Day Interim History: Reviewed with Dr. Hager. Pt reports feeling better today;pt stated, I'm not feeling anxious or depressed anymore. I feel like I'm going in a better direction . He denies withdrawal symptoms and not scoring on CIWA. Pt requesting to be discharged tomorrow, rather than on 3 day which is due on 04/19/24. denies SI/HI/VH/AH. DC CIWA Pt [facility]. Medication Compliance: Yes Side effects from medications: No Attending Groups: Intermittent Review of Systems Constitutional: Reports as per HPI Eyes: Reports as per HPI Reports as per HPI Cardiovascular: Reports as per HPI Respiratory: Reports as per HPI Gastrointestinal: Reports as per HPI Genitourinary: Reports as per HPI Musculoskeletal: Reports as per HPI Skin/Breast: Reports as per HPI Reports as per HPI Psychiatric: Reports as per HPI Endocrine: Reports as per HPI Hematologic/Lymphatic: Reports as per HPI Allergic/Immunologic: Reports as per HPI Mental Status Exam Mental Status Exam Narrative: Pt is alert and oriented; behavior is cooperative,calm; dressed in casual attire; mood is described as good ;eye contact appropriate; Speech is normal rate, volume and not pressured; thought process is organized; Thought content is on tx; denies SI/HI/VH/AH. States he is motivated for sobriety Diagnostics Vital Signs (24Hr): Vital Signs - 24 hr 04/16/24 21:22 04/17/24 07:10 Temperature 98.5 F 97.4 F Pulse Rate 99 98 Respiratory Rate 16 14 Blood Pressure 128/77 123/82 Pulse Oximetry 99 99 Oxygen Delivery Method Room Air Room Air BMI result Body Mass Index 28.9 Labs 04/13/24 12:34 04/14/24 08:34 Medications Medications Current Medications Acetaminophen (Acetaminophen 325 Mg Tablet) 650 mg PO Q6H PRN PRN Reason: Headache/Pain Mild Scale (1-3) Al Hydroxide/Mg Hydroxide (Magnesium Hydrox/Alum Hydrox 30 Ml Oral.Susp) 30 ml PO Q6H PRN PRN Reason: Heartburn/Nausea Last Admin: 04/16/24 20:08 Dose: 30 ml Gabapentin (Gabapentin 300 Mg Capsule) 300 mg PO BEDTIME GUILLERMO Last Admin: 04/16/24 22:33 Dose: 300 mg Hydroxyzine HCl (Hydroxyzine Hcl 25 Mg Tablet) 25 mg PO Q6H PRN PRN Reason: Anxiety Last Admin: 04/16/24 22:34 Dose: 25 mg Lorazepam (Lorazepam 1 Mg Tablet) 1 mg PO Q2H PRN PRN Reason: CIWA 8-11 Lorazepam (Lorazepam 1 Mg Tablet) 2 mg PO Q2H PRN PRN Reason: CIWA 12-15 Lorazepam (Lorazepam 1 Mg Tablet) 3 mg PO Q2H PRN PRN Reason: CIWA > 15, and call Lorazepam (Lorazepam 0.5 Mg Tablet) 0.5 mg PO BID [facility] Magnesium Hydroxide (Milk Of Magnesia 30 Ml Oral.Susp) 30 ml PO DAILY PRN PRN Reason: Constipation Mirtazapine (Mirtazapine 7.5 Mg Tablet) 7.5 mg PO BEDTIME GUILLERMO Last Admin: 04/16/24 22:33 Dose: 7.5 mg Nicotine (Nicotine 21 Mg Patch.Td24) 21 mg TRANSDERMA DAILY [facility] Last Admin: 04/17/24 08:26 Dose: 21 mg Nicotine Polacrilex (Nicotine Polacrilex 2 Mg Gum) 2 mg BUCCAL Q2H PRN PRN Reason: Nicotine Cravings Last Admin: 04/17/24 08:30 Dose: 2 mg Ondansetron HCl (Ondansetron Odt 8 Mg Tab.Rapdis) 8 mg TRANSLINGU Q8H PRN PRN Reason: Nausea and Vomiting Thiamine HCl (Thiamine Hcl 100 Mg Tablet) 100 mg PO DAILY [facility] Last Admin: 04/17/24 08:27 Dose: 100 mg Trazodone HCl (Trazodone Hcl 50 Mg Tablet) 50 mg PO BEDTIME MRX1 PRN PRN Reason: Insomnia Last Admin: 04/16/24 22:34 Dose: 50 mg Allergies Allergies Allergy/AdvReac Type Severity Reaction Status Date / Time No Known Allergies Allergy Verified 04/13/24 12:19 Assessment & Plan Assessment & Plan (1) MDD (major depressive disorder), recurrent episode: Status: Acute Code(s): F33.9 - Major depressive disorder, recurrent, unspecified (2) Alcohol use disorder, severe, dependence: Status: Acute Code(s): F10.20 - Alcohol dependence, uncomplicated Plan Patient is a 28-year-old male with history of alcohol use disorder who presented to the ER following an appointment at the [facility] at [facility] [place] d/t increased alcohol use secondary to increased depressive symptoms. Plan: CV 15 minute safety checks CIWA Continue: Ativan 1mg PO TID Gabapentin 300mg PO bedtime Encourage groups Referral to outpatient psychiatric providers Discharge planning 04/15: Keeping to self. Patient reports feeling tired today. Patient stated, my anxiety is better. I'm not shaking. My depression is coming from my girlfriend being unfaithful . Per nursing, patient slept 7 hours last night. Continue CIWA. Start: Remeron 7.5mg PO bedtime Decrease scheduled Ativan to 1mg PO BID 04/16/2024 Continue Remeron lower lorazepam check liver function test would start naltrexone might benefit from Vivitrol Might benefit from PHP if work allows if not evening IOP might be a good discharge plan at 04/17: Pt reports feeling better today;pt stated, I'm not feeling anxious or depressed anymore. I feel like I'm going in a better direction . He denies withdrawal symptoms and not scoring on CIWA. Pt requesting to be discharged tomorrow, rather than on 3 day which is due on 04/19/24. denies SI/HI/VH/AH. DC CIWA Pt [facility] with [facility]. Patient educated on: diagnosis, medication risk/benefits, substance abuse and therapeutic strategies Reason for continued inpatient stay Substantial Risk for: stable for discharge Time Spent With Patient Time: Total time managing care of this patient today _20___ minutes.
--- NOTE | 2024-04-17 11:19 | MHC.RECOVRN ---
Met with patient on Unit, he was up, awake and in the common area. States he feels much better , acknowledges he has begun to go to groups, stated I'm ready to go home . Was smiling, speaking in clear/full sentences. Denies any withdrawal symptoms. He asked me to call his and check in with her. He will come see us as a walk in this week, after discharge for continued care at [facility].
[2024-04-17 20:23] VITALS: BP 144/78; PULSE 108; RESP 16; TEMP 37.2; O2SAT 99
[2024-04-17] MEDS: Mirtazapine 7.5 MG TABLET PO (20:34)
[2024-04-17] MEDS: traZODone HCL 50 MG TABLET PO (20:34)
[2024-04-17] MEDS: Gabapentin 300 MG CAPSULE PO (20:35)
[2024-04-17] MEDS: LORazepam 0.5 MG TABLET PO (20:35)
[2024-04-17] MEDS: hydrOXYzine HCL 25 MG TABLET PO (20:36)
[2024-04-18 07:45] VITALS: BP 134/91; PULSE 89; RESP 16; TEMP 36.6; O2SAT 98
[2024-04-18] MEDS: Nicotine Polacrilex 2 MG GUM BUCCAL (08:30)
[2024-04-18] MEDS: LORazepam 0.5 MG TABLET PO (08:30)
[2024-04-18] MEDS: Thiamine HCL 100 MG TABLET PO (08:30)
--- NOTE | 2024-04-18 10:50 | P.DS_ITS ---
DS: Providers Provider Date of Service: 04/18/24 Date of admission: 04/13/24 20:03 Date of discharge: 04/18/24 Primary care physician: Bessy Physician Admitting clinician: Raeann Woody Attending physician on admission: Tristan Hager Consults: 04/13/24 22:49 Addiction Medicine Routine Consulting Provider: Addiction Covering Reason for consultation: ETOH abuse Attending physician on discharge: Tristan Hager Discharging clinician: Raeann Woody DS: Diagnosis Discharge Diagnosis (1) MDD (major depressive disorder), recurrent episode: Status: Acute (2) Alcohol use disorder, severe, dependence: Status: Acute DS: Medications Discharge Medications Home Medications: Previous Rx's ?Medication ?Instructions ?Recorded gabapentin 300 mg capsule 300 mg PO BEDTIME 30 days #30 caps 04/17/24 mirtazapine 7.5 mg tablet 7.5 mg PO BEDTIME 30 days #30 tabs 04/17/24 Mental Status Exam Mental Status Exam Narrative: Pt is alert and oriented; behavior is cooperative,calm; dressed in casual attire; mood is described as good ;eye contact appropriate; Speech is normal rate, volume and not pressured; thought process is organized; Thought content is on tx; denies SI/HI/VH/AH. Data Data Completed and Pending Completed studies during hospitalization [Text1]: 04/13/24 04/13/24 04/14/24 12:34 14:31 08:34 WBC 5.6 RBC 5.19 Hgb 16.8 Hct 48.1 MCV 92.7 MCH 32.4 MCHC 34.9 RDW 11.8 Plt Count 227 MPV 11.0 Immature Gran % (Auto) 0.2 Neut % (Auto) 58.5 Lymph % (Auto) 27.7 [place] % (Auto) 11.8 H Eos % (Auto) 1.4 Baso % (Auto) 0.4 Lymph # (Auto) 1.6 [place] # (Auto) 0.7 Eos # (Auto) 0.1 Baso # (Auto) 0.0 Abs Immat Gran (auto) 0.01 Absolute Neuts (auto) 3.3 Absolute Nucleated RBC 0.000 Nucleated RBC % (auto) 0.0 Sodium 143 141 Potassium 4.1 3.5 Chloride 108 106 Carbon Dioxide 24 27 Anion Gap 15 12 BUN 11 12 Creatinine 0.94 0.97 Estim Creat Clear Calc 128.8 125.0 Estimated GFR > 60 > 60 Random Glucose 94 Fasting Glucose 108 H Calcium 9.6 9.5 Magnesium 2.1 Total Bilirubin 0.4 0.5 Direct Bilirubin 0.2 AST 26 23 ALT 24 22 Alkaline Phosphatase 78 79 Total Protein 7.5 6.5 Albumin 4.5 3.9 Triglycerides 77 Cholesterol 146 LDL Cholesterol, Calc 52 HDL Cholesterol 79 Lipase 11 Vitamin B12 254 Folate 5.6 TSH 0.77 Free T4 0.90 Urine Color Yellow Urine Appearance Clear Urine pH 6.5 Ur Specific [place] 1.020 Urine Protein Negative Urine Glucose (UA) Negative Urine Ketones Negative Urine Blood Negative Urine Nitrite Negative Ur Leukocyte Esterase Negative Salicylates < 5.0 L Urine Opiates Screen Not Detected Ur Buprenorphine Scrn Not Detected Ur Oxycodone Screen Not Detected Urine Methadone Screen Not Detected Urine Fentanyl Screen Not Detected Acetaminophen < 3 Ur Barbiturates Screen Not Detected Ur Phencyclidine Scrn Not Detected Ur Amphetamines Screen Not Detected U Benzodiazepines Scrn Not Detected Urine Cocaine Screen Not Detected U Marijuana (THC) Screen Not Detected Ethyl Alcohol 244 DS: Summary Hospital Course Hospital Course: Patient is a 28-year-old male with history of alcohol use disorder who presented to the ER following an appointment at the [facility] [place] [facility] [place] d/t increased alcohol use secondary to increased depressive symptoms. Per crisis report, patient reported that due to an increase in depression and anxiety, patient has been self medicating with alcohol. Patient reported feelings of helpless and hopelessness. He endorsed poor sleep and appetite, resulting in weight loss and lack of motivation and interest in doing things that he previously enjoyed. denied SI/HI/VH/AH. Patient did not disclose specific precipitating factors of increase in depressive symptoms. denies hx of inpatient psychiatric admissions. Patient reported he recently attempted to admit himself to [facility] for detox but did not complete treatment as he did not feel supported by staff. Patient reports he does not have outpatient psychiatric providers. denied other substance use outside of alcohol. During admission assessment, patient presents alert and oriented x3. Calm and cooperative. Patient stated, I have anxiety and depression, which causes me to drink . Patient guarded during assessment; he reports that a situation between him and his girlfriend has contributed to his increased depression. Patient stated, I don't want to talk about it . Patient reports he is able to return home. denies history of psychiatric care. Denies SA/SIB. He reports drinking 12 nips daily for the past year. Denies any other substance use. Patient denies SI/HI/VH/AH. He was recently seen [facility] by Ofelia Pan NP. Plan: CV 15 minute safety checks CIWA Continue: Ativan 1mg PO TID Gabapentin 300mg PO bedtime Encourage groups Referral to outpatient psychiatric providers Discharge planning Keeping to self. Patient reports feeling tired today. Patient stated, my anxiety is better. I'm not shaking. My depression is coming from my girlfriend being unfaithful . Per nursing, patient slept 7 hours last night. Continue CIWA. Start: Remeron 7.5mg PO bedtime Decrease scheduled Ativan to 1mg PO BID Continue Remeron lower lorazepam check liver function test would start naltrexone might benefit from Vivitrol Might benefit from PHP if work allows if not evening IOP might be a good discharge plan at Pt reports feeling better today;pt stated, I'm not feeling anxious or depressed anymore. I feel like I'm going in a better direction . He denies withdrawal symptoms and not scoring on CIWA. Pt requesting to be discharged tomorrow, rather than on 3 day which is due on 04/19/24. denies SI/HI/VH/AH. DC CIWA Pt to [facility] with [facility]. Patient reports feeling good ; plans on following up with outpatient providers. denies SI/HI/VH/AH. Time spent discussing smoking cessation with patient: 3 to 10 minutes Status at Discharge Cognitive/behavioral status at discharge: Patient was interviewed prior to discharge and found to be fully oriented and without SI or HI. Patient has insight and demonstrates good judgment in terms of wanting to pursue treatment. Patient has a safety plan that includes presenting to the closest ER or calling 911 if feeling unsafe. Functional status at discharge: independent ambulation Overall status at discharge: patient is back to baseline Time Spent with Patient Time attestation: Total time managing care of this patient today _20___ minutes. Time spent: Less than 30 minutes Discharge Plan Discharge Anticipated Discharge Date/Time: 04/18/24 11:00 Patient Disposition: Home, Self-Care Discharge Diagnosis: MDD, Alcohol use d/o Referrals: Moraima Acosta ([facility]) [Other] - 1 Week (They would like you to check in with them before you leave the hospital to make a plan moving forward.) Corina Ramirez ([facility] Clinician) [Other] - 04/26/24 10:00 am (In-person appointment) Saba Melo ([facility] Psychiatry) [Other] - 05/24/24 11:00 am (Telehealth appointment) [facility] [Provider Group] - 1 Week ([facility] was added to patients chart. Please call [phone] for follow up appt.) Discharge Medications: New mirtazapine 7.5 mg Tablet 7.5 mg PO BEDTIME 30 Days Qty: 30 0RF gabapentin 300 mg Capsule 300 mg PO BEDTIME 30 Days Qty: 30 0RF Discontinued gabapentin 100 mg capsule 100 mg PO TID PRN (Reason: anxiety) hydroxyzine pamoate 25 mg capsule 25 mg PO TID PRN (Reason: itching) Qty: 20 0RF Discharge Orders: Discharge Order (Routine); Ordered 04/18/24 Ordered By: Raeann Woody Diet: Regular diet Activity on Discharge: As tolerated Stand Alone Forms: Patient Portal Discharge page, Community Support Print Language: Vietnamese Care Plan Goals: Maintain mood and safe behaviors Take medications as prescribed Continue to pursue sobriety Practice coping skills Continue with outpatient providers and reach out to them as needed Health Concerns: Mood stability and behaviors Sobriety Plan of Treatment: Follow up with your PCP, psychiatric provider and other outpatient providers regarding above concerns Take medications as prescribed Assessment: Patient was interviewed prior to discharge and found to be fully oriented and without SI or HI. Patient has insight and demonstrates good judgment in terms of wanting to pursue treatment. Patient has a safety plan that includes presenting to the closest ER or calling 911 if feeling unsafe. Discharge Date/Time: 04/18/24 08:50
== END 2024-04-18 08:50 | disposition home or self-care (01) | DRG 751 ==
LOC: HO.ED 17:23 → HO.PADLT16 20:21
PROVIDERS: Physician Assistant; Admitting Provider Psychiatry & Neurology Psychiatry; Emergency Provider Student in an Organized Health Care Education/Training Program; Responsible Provider Registered Nurse; Visit Provider Psychiatry & Neurology Psychiatry
DX: F33.9 Major depressive disorder, recurrent, unspecified (principal); F10.229 Alcohol dependence with intoxication, unspecified; F17.210 Nicotine dependence, cigarettes, uncomplicated; F10.239 Alcohol dependence with withdrawal, unspecified; Y90.8 Blood alcohol level of 240 mg/100 ml or more; Z71.6 Tobacco abuse counseling; Z79.899 Other long term (current) drug therapy
CPT/HCPCS: 36415; 80048; 80053; 80061; 80076; 80143; 80179; 80307; 81003; 82607; 82746; 83690; 83735; 84439; 84443; 85025; 99285; S9485

== ENCOUNTER → 2024-04-13 20:03 | Outpatient (BNV) | payer OTHER, SELFPAY | PROVIDERS: Admitting Provider Psychiatry & Neurology Psychiatry; Emergency Provider Student in an Organized Health Care Education/Training Program; Responsible Provider Registered Nurse; Visit Provider Psychiatry & Neurology Psychiatry | DX: F33.2 Major depressive disorder, recurrent severe without psychotic features (principal); F10.20 Alcohol dependence, uncomplicated | CPT/HCPCS: 99232 ==

== ENCOUNTER → 2024-04-13 20:03 | Outpatient (BNV) | payer OTHER, SELFPAY | PROVIDERS: Admitting Provider Psychiatry & Neurology Psychiatry; Emergency Provider Student in an Organized Health Care Education/Training Program; Visit Provider Registered Nurse | DX: F33.2 Major depressive disorder, recurrent severe without psychotic features (principal); F10.20 Alcohol dependence, uncomplicated | CPT/HCPCS: 99231; 99232; 99233 ==

== ENCOUNTER 2024-07-16 09:55 | Emergency (ER) | payer MEDICAID, SELFPAY ==
[2024-07-16 09:57] VITALS: BP 131/69; PULSE 120; RESP 20; TEMP 36.1; O2SAT 95; BMI 26.5
--- OUTSIDE RECORDS SUMMARY | 2024-07-16 09:58 | XMS_ITS | Continuity of Care Document ---
Author Organization [facility] Address [address] [place] [id number] Phone Care Team Providers Care Financial Engineer Name Role Phone Harpreet Gamino MD Unavailable Unavailable Allergies, Adverse Reactions, Alerts Substance Reaction Status Criticality No Known Allergies Active No Inform ation Procedures Procedure Date X-RAY OF KNEE (COMPLETE) 4 V MIN. Medications - Current Meds Documented Ap NEW PATNT OV DTL EXAM Advance Directives Directive Yes / No Effective Date File Name No Information Encounters Encounter Description Practice Location Reason(s) For Visit Diagnoses Date Provider Providers Copied on Encounter NEW PATNT OV DTL EXAM [facility], [address], [place], [place], [id number], [place] tel:[phone] [facility] right knee (chief complaint) Pain in right kneeTear of medial meniscus of right knee, current, unspecified tear type, initial encounter Hanny Mullins. [address] [place], [id number] , [place]. tel:[phone] Referring Provider: Harpreet Lovell, [address] [place], [address] . tel:[phone] Family History Family Member Type Diagnosis Age At Onset No Information Payers Payer name Insurance type Covered libertarian ID Authoriza tipietro(s) Baldevtsummer CI [id number] Social History Type Description Quantity Date Captured Comments Alcohol Use Details Unknown Caffeine Use Details Unknown Tobacco Use Status Current non-smoker Smoking Status Never smoker Non-Smoking Tobacco Use Details : No Details Available : No Details Available Sex Male Vital Signs Date / Time: Height Weight BMI Pulse Rate Blood Pressure Temperature Respiratory Rate Body Surface Area Head Circumference Head Circ. Percentile Wt./Al. Percentile BMI percentile Pulse Ox Inhaled Ox 3:11 PM 66.00 in 58.967 kg (130.00 lbs) 20.9 8 kg/m eter (2) Chief Complaint And Reason For Visit From encounter dated '10/22/2021 15:40'. right knee (chief complaint) Reason For Referral Reason For Referral No Information Plan Of Treatment Date Type Action Status Future Order: Radiology Order MR I - Knee Right W/O Contrast (KNR), Appointment on: , Sent on: Sent History Of Present Illness Encounter Date Complaint History Of Prese nt Illness right knee Functional Status Date Functional Assessmen t No Information Instructions Date Instruction Additional Infor kaitlynn - Medication refills must be requested before 4pm Tuesday through Tuesday Related to Pain in right knee - Patient education available at [email or web address] on the Education tab Related to Pain in right knee Assessments Type Assessment Date assessment Pain in right knee assessment Tear of medial menis cus of right knee, current, unspecified tear type, initial encounter Patient Care Teams Name Effective Dates (start - stop) Status Members No Information
--- NOTE | 2024-07-16 10:06 | ED_ITS ---
HPI - General Adult General Chief complaint: ETOH/Substance Use Stated complaint: ETOH Withdrawals Time Seen by Provider: 07/16/24 10:05 Source: patient Mode of arrival: ambulatory Limitations: no limitations History of Present Illness ED Provider: Nhung Fragoso PA-C HPI narrative: Patient is a 29 year old assigned male at with a history of alcohol use disorder presenting to the emergency department today with alcohol withdrawal. Patient states that he drinks alcohol daily and over the last few days he has felt like he is withdrawing because he feels generally unwell but has continued drinking alcohol. Patient denies any history of withdrawals and has successfully detoxed before. Patient states that he is feeling shaky and nauseous. Patient denies any dizziness, lightheadedness, abdominal pain, vomiting, fever, chills, blurry vision, double vision, loss of vision, chest pain, difficulty breathing, shortness of breath, back pain, night sweats, pain with urination, increased urinary frequency, increased urinary urgency, blood in his urine or stool, syncope or a near syncopal episode, recent trauma or falls, bowel incontinence, bladder incontinence, or any other complaints at this time. Relieving factors: none Exacerbating factors: none Associated symptoms: nausea/vomiting Treatments prior to arrival: none Related Data Previous Rx's ?Medication ?Instructions ?Recorded gabapentin 300 mg capsule 300 mg PO BEDTIME 30 days #30 caps 04/17/24 mirtazapine 7.5 mg tablet 7.5 mg PO BEDTIME 30 days #30 tabs 04/17/24 naltrexone 50 mg tablet 50 mg PO DAILY #30 tabs 04/18/24 Allergies Allergy/AdvReac Type Severity Reaction Status Date / Time No Known Allergies Allergy Verified 07/16/24 10:01 Review of Systems 2 Constitutional: Constitutional: Reports no additional constitutional complaints, Denies chills, Denies fever(s) and Denies night sweats Eyes: Eyes: Reports no additional eye complaints, Denies blurry vision, Denies change in vision, Denies diplopia, Denies eye discharge, Denies loss of vision and Denies eye pain ENT: Denies dizziness Cardiovascular: Cardiovascular: Reports no additional cardiovascular complaints, Denies chest pain, Denies lightheadedness, Denies Loss of Consciousness and Denies dyspnea Respiratory: Respiratory: Reports no additional respiratory complaints and Denies dyspnea Gastrointestinal: Gastrointestinal: Reports no additional gastrointestinal complaints, Denies abdominal pain, Denies melena, Denies hematochezia, Denies change in bowel habits, Denies change in stool character, Reports nausea and Denies vomiting Genitourinary: Genitourinary: Reports no additional male genitourinary complaints, Denies hematuria, Denies oliguria, Denies difficulty urinating, Denies dysuria, Denies urinary frequency, Denies urinary hesitancy, Denies urinary incontinence and Denies urinary urgency Musculoskeletal: Musculoskeletal: Reports no additional musculoskeletal complaints, Denies numbness and Denies tingling Neurologic: Denies dizziness, Denies loss of vision, Denies numbness and Denies tingling Psychiatric: Psychiatric: Reports no additional psychiatric complaints Endocrine: Endocrine: Reports no additional endocrine complaints Hematologic/Lymphatic: Hematologic/Lymphatic: Reports no additional hematologic/lymphatic complaints Allergic/Immunologic: Allergic/Immunologic: Reports no additional allergic/immunologic complaints PMFSH Past Medical History Attestation statement: The following information was validated with the patient. Source: old records reviewed and nursing notes reviewed Medical History Depression Acute anxiety Social History Social History Household Members: Significant Other and Children Housing: Apartment Do you presently have visiting nurse or other home services: No Alcohol intake: current Alcohol intake frequency: 3 or more drinks per day Alcohol type: hard liquor Patient Tobacco Use Status: Current everyday Tobacco user Tobacco use type: Cigarette and Smokeless Tobacco Years Smoked: 1 Smoked in Last 30 Days: Yes e-Cigarette/Vaping Use: Currently Using Second Hand Smoke Exposure: No Use of substances other than those prescribed or required for medical reasons: No Advance Directives: No Advance Directives Information Provided: Yes service: No Sexual orientation: Straight/Heterosexual Physical Exam ED Vital Signs: Vital Signs - 24 hr 07/16/24 09:57 07/16/24 14:01 Temperature 96.9 F 99.1 F Pulse Rate 120 H 103 H Respiratory Rate 20 15 Blood Pressure 131/69 138/87 Pulse Oximetry 95 95 Oxygen Delivery Method Room Air Room Air BMI result Body Mass Index 26.5 Const General: cooperative, no acute distress, alert and awake Nutritional Appearance: well nourished Orientation/consciousness: patient oriented x3 Limitations: no limitations HENMT Head: Yes normal to inspection and Yes atraumatic Ears: hearing grossly normal bilaterally and external ears normal General nose exam: Normal external nose present, no nasal discharge noted and no epistaxis Face and sinus: Yes normal facial exam, No abrasion and No laceration Mouth: Normal oral and palatal mucosa present, no drooling and no muffled voice Eyes General: appearance normal, both eyes and all related structures Periorbital: periorbital findings normal Eyelids: Yes eyelids normal Conjunctivae: conjunctivae normal Pupils: Equal, round and reactive pupils present EOM: EOMs intact bilaterally Neck Neck: Yes normal visual inspection, Yes full ROM and Yes no lymphadenopathy Chest Chest palpation & inspection: normal inspection of the chest Resp Effort & Inspection: normal respiratory effort and able to speak in complete sentences Cardio Rate: tachycardic Rhythm: regular rhythm GI Inspection: Yes normal to inspection Neuro General: patient oriented x3 and moves all extremities Cranial nerves: Yes Equal, round and reactive pupils present Cognition (Neuro): normal cognition Extrem General: Yes normal to inspection, Yes full ROM and Yes capillary refill normal Psych Appearance: grossly normal Mental Status: mental status grossly normal Affect: normal affect Attitude: cooperative Thought process: Normal thought process present Thought content: Normal thought content present Insight: Good insight present (Psych) Medications Administered Discontinued Medications Generic Name Dose Route Start Last Admin Trade Name Freq PRN Reason Stop Dose Admin Sodium Chloride 1,000 mls @ 999 mls/hr 07/16/24 10:15 07/16/24 11:57 Ns IV 07/16/24 11:15 Infused .Q1H1M GUILLERMO Infusion Lorazepam 2 mg 07/16/24 10:06 07/16/24 10:52 Lorazepam 2 Mg/Ml Vial IVPUSH 07/16/24 10:07 2 mg ONCE ONE Administration Ondansetron HCl 4 mg 07/16/24 10:06 07/16/24 10:52 Ondansetron Hcl 4 Mg/2 Ml Vial IVPUSH 07/16/24 10:07 4 mg ONCE ONE Administration Medical Decision Making Medical Decision Making [facility] Narrative: Patient is a 29 year old assigned male at with a history of alcohol use disorder presenting to the emergency department today with alcohol withdrawal. Patient's physical exam was as noted in the physical exam portion of this note. Patient's blood work was unremarkable. Patient's urine showed no acute process. Patient's EKG showed sinus tachycardia but was otherwise unremarkable. Patient was evaluated by the addiction team and to them - he expressed increased depression and anxiety. Addiction team recommended CARE consult. CARE consult placed. I explained my physical exam findings as well as all test results to the patient. I answered all questions asked by the patient. Patient's disposition pending CARE team evaluation. Patient is medically cleared. Differential Diagnosis Differential Diagnoses: The differential diagnosis associated with the presentation includes Alcohol use and abuse Anxiety Depression Admission/Observation Consideration of admission/observation: Escalation of care including admission/observation considered Patient's disposition will be determined after CARE team evaluation. Consult Healthcare Provider Management of the patient was discussed with: Behavioral Health Provider (spoke to the addiction team as noted in the MDM Rationale portion of this note.) Lab Data [facility] Lab Attestation statement: I reviewed the patient's lab results. My interpretation of these results are in the MDM Rationale portion of this note. 07/16/24 10:33 07/16/24 10:33 Labs: Lab Results 07/16/24 07/16/24 07/16/24 Range/Units 10:33 10:47 12:06 WBC 6.2 (4.8-10.8) X10*3/uL RBC 5.03 (4.60-5.80) X10*6/uL Hgb 16.5 (14.0-18.0) g/dl Hct 46.4 (42.0-52.0) % MCV 92.2 (80.0-98.0) fL MCH 32.8 (27.0-33.0) pg MCHC 35.6 (31.0-36.0) g/dl RDW 11.6 (11.0-16.0) % Plt Count 219 (160-400) X10*3/uL MPV 10.7 (9.4-12.4) fL Immature Gran % (Auto) 0.5 H (0.0-0.4) % Neut % (Auto) 69.0 (45-73) % Lymph % (Auto) 18.3 L (20-40) % [place] % (Auto) 11.3 H (2-11) % Eos % (Auto) 0.6 (0-4) % Baso % (Auto) 0.3 (0-2) % Lymph # (Auto) 1.1 L (1.2-4.9) X10*3/uL [place] # (Auto) 0.7 (0.1-1.2) X10*3/uL Eos # (Auto) 0.0 (0.0-0.4) X10*3/uL Baso # (Auto) 0.0 (0.0-0.2) X10*3/uL Abs Immat Gran (auto) 0.03 (0.00-0.03) X10*3/uL Absolute Neuts (auto) 4.3 (2.0-8.3) x10*3/uL Absolute Nucleated RBC 0.000 (0.0-0.012) X10*3/uL Nucleated RBC % (auto) 0.0 (0.0-0.2) /100WBC Sodium 142 (135-145) mmol/L Potassium 3.8 (3.3-5.1) mmol/L Chloride 107 (96-108) mmol/L Carbon Dioxide 23 (22-29) mmol/L Anion Gap 16 (12-20) BUN 10 (9-16) mg/dL Creatinine 0.99 (0.5-1.4) mg/dL Estim Creat Clear Calc 113.6 Estimated GFR > 60 Random Glucose 107 (60-115) mg/dL Calcium 9.2 (8.4-10.2) mg/dL Magnesium 1.9 (1.6-2.6) mg/dL Total Bilirubin 0.3 (0.0-1.0) mg/dL AST 81 H (5-37) U/L ALT 68 H (0-40) U/L Alkaline Phosphatase 92 (39-117) U/L Total Protein 7.4 (6.5-8.0) g/dL Albumin 4.2 (3.5-5.0) g/dL Urine Color Yellow Urine Appearance Clear Urine pH 6.5 (5.0-9.0) Ur Specific [place] <= 1.005 (1.005-1.025) Urine Protein Negative (Neg-Trace) mg/dL Urine Glucose (UA) Negative (Negative) mg/dL Urine Ketones Negative (Negative) mg/dL Urine Blood Negative (Negative) Urine Nitrite Negative (Negative) Ur Leukocyte Esterase Negative (Negative) Salicylates < 5.0 L (15-30) mg/dL Urine Opiates Screen Not Detected (Not Detect) Ur Buprenorphine Scrn Not Detected (Not Detect) ng/mL Ur Oxycodone Screen Not Detected (Not Detect) ng/mL Urine Methadone Screen Not Detected (Not Detect) ng/mL Urine Fentanyl Screen Not Detected (Not Detect) Acetaminophen < 3 (<30) mcg/mL Ur Barbiturates Screen Not Detected (Not Detect) Ur Phencyclidine Scrn Not Detected (Not Detect) Ur Amphetamines Screen Not Detected (Not Detect) U Benzodiazepines Scrn Not Detected (Not Detect) Urine Cocaine Screen Not Detected (Not Detect) U Marijuana (THC) Screen Not Detected (Not Detect) Ethyl Alcohol 343 H* mg/dL Influenza Type A (PCR) NEGATIVE (Negative) Influenza Type B (PCR) NEGATIVE (Negative) RSV RNA Qual (PCR) NEGATIVE (Negative) SARS-CoV-2 RNA (RT-PCR) NEGATIVE (Negative) Independent Interpretation I performed an independent interpretation of an: EKG Interpretation: Vent. Rate: 105 BPM Atrial Rate: 105 BPM P-R Int: 124 ms QRS Dur: 098 ms QT Int: 334 ms P-R-T Axes: 055 012 035 degrees QTc Int: 441 ms Sinus tachycardia Otherwise normal ECG No previous ECGs available Referred By: Nhung Fragoso Electronically Signed By:GUILLERMO BARTLETT MD Dictated By: Guillermo Bartlett MD Signed By: Electronically signed by Guillermo Bartlett MD 07/16/24 4841 Radiology Impression Discussion of test interpretation with radiology: I have reviewed the radiologist's reading. Discharge Plan Discharge Clinical Impression: Alcohol use disorder, Anxiety, Depression Patient Disposition: Still a Patient Prescriptions: No Action naltrexone 50 mg tablet 50 mg PO DAILY Qty: 30 0RF mirtazapine 7.5 mg Tablet 7.5 mg PO BEDTIME 30 Days Qty: 30 0RF gabapentin 300 mg Capsule 300 mg PO BEDTIME 30 Days Qty: 30 0RF Print Language: Sammarinese
--- NOTE | 2024-07-16 10:06 | ECG_ITS ---
Test Reason : ETOH Blood Pressure : / mmHG Vent. Rate : 105 BPM Atrial Rate : 105 BPM P-R Int : 124 ms QRS Dur : 098 ms QT Int : 334 ms P-R-T Axes : 055 012 035 degrees QTc Int : 441 ms Sinus tachycardia Otherwise normal ECG No previous ECGs available Referred By: Nhung Fragoso Electronically Signed By:TABITHA JOHNSON MD
[2024-07-16 10:36] LABS: MANUAL DIFF FLAG NO
[2024-07-16 10:39] LABS: Basophils Percent Auto 0.3 % (0-2); Eosinophils Percent Auto 0.6 % (0-4); Hematocrit 46.4 % (42.0-52.0); Hemoglobin 16.5 g/dl (14.0-18.0); Imm Gran Abs Auto 0.03 X10*3/uL (0.00-0.03); Imm Gran Pct Auto 0.5 % (0.0-0.4); Lymphocytes Absolute Auto 1.1 X10*3/uL (1.2-4.9); Lymphocytes Percent Auto 18.3 % (20-40); Mean Corpuscular HGB Conc 35.6 g/dl (31.0-36.0); Mean Corpuscular Hemoglobin 32.8 pg (27.0-33.0); Mean Corpuscular Volume 92.2 fL (80.0-98.0); Mean Platelet Volume 10.7 fL (9.4-12.4); Monocytes Absolute Auto 0.7 X10*3/uL (0.1-1.2); Monocytes Percent Auto 11.3 % (2-11); Neutrophils Absolute Auto 4.3 x10*3/uL (2.0-8.3); Platelet Count 219 X10*3/uL (160-400); Red Blood Count 5.03 X10*6/uL (4.60-5.80); Red Cell Distribution Width 11.6 % (11.0-16.0); White Blood Count 6.2 X10*3/uL (4.8-10.8)
--- OUTSIDE RECORDS SUMMARY | 2024-07-16 10:44 | XMS_ITS | Continuity of Care Document ---
Author Organization [facility] Address [address] [place] [id number] Phone Care Team Providers Care Tile Edger Name Role Phone Harpreet Gamino MD Unavailable [...] on Encounter NEW PATNT OV DTL EXAM [facility], [address], [place], [place], [id number], [place] tel:[phone] [facility] O[facility] right knee (chief complaint) Pain in right kneeTear of medial meniscus of right knee, current, unspecified tear type, initial encounter Hanny Mullins. [address] [place], [id number] , [place]. tel:[phone] Referring Provider: Harpreet Lovell, [address] [place], [address] . tel:[phone] Family History Family Member Type Diagnosis Age At Onset No Information Payers Payer name Insurance type Covered democrat ID Authoriza tipietro(s) [employer] CI [id number] Social History Type Description Quantity Date Captured [...] right knee - Patient education available at [email or web address] on the Education tab Related to Pain in right knee Assessments Type Assessment Date assessment Pain in right knee assessment Tear of medial menis cus of right knee, current, unspecified tear type, initial encounter Patient Care Teams Name Effective Dates (start - stop) Status Members No Information
[2024-07-16] MEDS: LORazepam 2 MG/ML VIAL IVPUSH (10:52)
[2024-07-16] MEDS: ondansetron HCL 4 MG/2 ML VIAL IVPUSH (10:52)
[2024-07-16 10:53] LABS: Alanine Aminotransferase 68 U/L (0-40); Albumin Level 4.2 g/dL (3.5-5.0); Alkaline Phosphatase 92 U/L (39-117); Anion Gap 16 (12-20); Aspartate Amino Transferase 81 U/L (5-37); Bilirubin Total 0.3 mg/dL (0.0-1.0); Blood Urea Nitrogen 10 mg/dL (9-16); Calcium 9.2 mg/dL (8.4-10.2); Carbon Dioxide 23 mmol/L (22-29); Chloride 107 mmol/L (96-108); Creatinine Clr Calc Pharmacy 113.6; Estimated Glomerular Filt Rate > 60; Ethanol 343 mg/dL; Glucose Random 107 mg/dL (60-115); Magnesium 1.9 mg/dL (1.6-2.6); Potassium 3.8 mmol/L (3.3-5.1); Sodium 142 mmol/L (135-145); Total Protein 7.4 g/dL (6.5-8.0)
[2024-07-16] MEDS: 0.9 % Sodium Chloride 1,000 ML 999 ML IV (10:53)
[2024-07-16 10:54] LABS: Acetaminophen LAB < 3 mcg/mL (<30); Salicylate < 5.0 mg/dL (15-30)
--- NOTE | 2024-07-16 11:06 | PC.NURSE ---
Pt moved to ED 14 for better visual. Pt restless on stretcher. Changed over into hospital gown - 2 empty nips and 1 full nip found on patient. With pt's consent, empty nip discarded. Pt reports detoxing in the past, unsure how long ago. Denies ever having seizures related to withdrawal. Denies any drug use. Pt A&Ox3, cooperative at this time. IV established, labs drawn/sent. Pt medicated per SEP.
[2024-07-16 11:33] LABS: Influenza A PCR NEGATIVE (Negative); Influenza B PCR NEGATIVE (Negative); Resp Syncy Virus RNA Qual PCR NEGATIVE (Negative); SARS COV2 PCR INHOUSE NEGATIVE (Negative)
--- NOTE | 2024-07-16 12:04 | PC.NURSE ---
Pt ambulatory to the BR to provide urine sample.
[2024-07-16 12:19] LABS: Appearance Urine Clear; Color Urine Yellow; Glucose Urine UA Negative (Negative); Leukocyte Esterase Urine Negative (Negative); Nitrite Urine Negative (Negative); PH 6.5 (5.0-9.0); Specific Gravity - Urine <= 1.005 (1.005-1.025); Urine Blood Negative (Negative); Urine Ketones Negative (Negative); Urine Protein Negative (Neg-Trace)
[2024-07-16 12:23] LABS: Amphetamine Screen Urine Not Detected (Not Detect); Barbiturates, Urine Not Detected (Not Detect); Benzodiazepines Screen Urine Not Detected (Not Detect); Buprenorphine Scr Not Detected (Not Detect); Cannabinoid Screen Urine Not Detected (Not Detect); Cocaine Screen Urine Not Detected (Not Detect); Fentanyl, urine Not Detected (Not Detect); Methadone Screen, Urine Not Detected (Not Detect); Opiate Screen Urine Not Detected (Not Detect); Oxycodone Screen Urine Not Detected (Not Detect); Phencyclidine Screen Urine Not Detected (Not Detect)
[2024-07-16 14:01] VITALS: BP 138/87; PULSE 103; RESP 15; TEMP 37.3; O2SAT 95
--- NOTE | 2024-07-16 15:55 | PC.NURSE ---
patient a&ox3, vss, pt ambulatory with steady gait, pt rr equal/non labored, lungs clear, ciwa was 5, pt denies pain/discomfort, call roca within reach, plan of care ongoing.
[2024-07-16 19:37] VITALS: BP 132/72; PULSE 98; RESP 16; TEMP 36.3; O2SAT 96
== END 2024-07-16 19:38 | disposition home or self-care (01) ==
PROVIDERS: Physician Assistant Medical; Emergency Provider Emergency Medicine
DX: F10.90 Alcohol use, unspecified, uncomplicated (principal); Y90.8 Blood alcohol level of 240 mg/100 ml or more; F41.9 Anxiety disorder, unspecified; Z03.818 Encounter for observation for suspected exposure to other biological agents ruled out
CPT/HCPCS: 0241U; 36415; 80053; 80143; 80179; 80307; 81003; 83735; 85025; 93005; 96361; 96374; 96375; 99285; J2060; J2405; S9485

== ENCOUNTER → 2024-07-16 10:06 | Outpatient (BNV) | payer MEDICAID, SELFPAY | PROVIDERS: Emergency Provider Emergency Medicine; Visit Provider Internal Medicine Cardiovascular Disease | DX: R00.0 Tachycardia, unspecified (principal) | CPT/HCPCS: 93010 ==

== ENCOUNTER 2024-10-12 13:43 | Outpatient (REF) | payer MEDICAID, SELFPAY ==
[2024-10-12 17:21] LABS: Alanine Aminotransferase 56 U/L (0-40); Aspartate Amino Transferase 45 U/L (5-37); Bilirubin Direct 0.2 mg/dL (0.0-0.5); Bilirubin Total 0.5 mg/dL (0.0-1.0); Total Protein 6.7 g/dL (6.5-8.0)
[2024-10-12 17:49] LABS: Alkaline Phosphatase 62 U/L (39-117)
== END 2024-10-12 13:44 | disposition home or self-care (01) ==
LOC: HO.HHCL 13:43
PROVIDERS: Visit Provider Family Medicine
DX: R74.8 Abnormal levels of other serum enzymes (principal)
CPT/HCPCS: 36415; 80076

== ENCOUNTER 2024-11-08 14:54 | Inpatient (IN) | payer MEDICAID, SELFPAY ==
[2024-11-08] VITALS (7 sets, daily range): BP systolic 122–145; BP diastolic 80–90; PULSE 75–126; RESP 16–18; TEMP 36.1–37.2; O2SAT 96–98; BMI 27.9; BMI 28.5
--- NOTE | 2024-11-08 15:00 | ED.ALCOHOL ---
HPI - Alcohol General Chief Complaint: ETOH/Substance Use Stated Complaint: ETOH withdrawal Time Seen by Provider: 11/08/24 15:35 Source: patient Mode of arrival: ambulatory Limitations: no limitations History of Present Illness ED Provider: LAINE CALHOUN narrative: 29 year-old male with PMHx of alcohol use disorder, MDD presents to the ED today due to withdrawal from alcohol. He explains he usually drinks approximately 20 nips per day. His last drink consisted of 2 nips 2 hours ago. He states he has history of alcohol withdrawal where he feels generally unwell with shakes, racing heart, nausea, vomiting and sweating. He denies ever experiencing withdrawal seizures, or delirium. He explains he has participated in detox in the past and has talked to the [facility] [place]. He states he wants to stop drinking at this time. He denies chest pain, SOB, headache, visual changes, visual/auditory/tactile hallucinations, fever, bloody or bilious vomiting, black or bloody stool, diarrhea, or urinary symptoms. Denies any suicidal or homicidal ideation. No other complaints or concerns at this time. MD complaint: alcohol withdrawal and alcohol dependence Last drink: Hours (ago) (2) Amount of alcohol consumed: drank 2 nips 2 hours ago Chronic alcohol use: Yes Previous visits for alcohol intoxication: Yes Recent trauma: No Associated symptoms: nausea, diaphoresis, tremors and other (heart palpitations) Treatments prior to arrival: none Related Data Previous Rx's ?Medication ?Instructions ?Recorded gabapentin 300 mg capsule 300 mg PO BEDTIME 30 days #30 caps 04/17/24 mirtazapine 7.5 mg tablet 7.5 mg PO BEDTIME 30 days #30 tabs 04/17/24 naltrexone 50 mg tablet 50 mg PO DAILY #30 tabs 04/18/24 Allergies Allergy/AdvReac Type Severity Reaction Status Date / Time No Known Allergies Allergy Verified 11/08/24 15:04 Review of Systems Review of Systems: Constitutional: No Weight loss, No Fever, No Chills, No Night Sweats, No Fatigue, + general Malaise ENT/Mouth: No Hearing loss, No Ear Pain, No Nasal Congestion, No Sinus Pain, No Hoarseness, No sore throat, No Rhinorrhea, No Swallowing Difficulty Eyes: No Eye Pain, No Swelling, No Redness, No Foreign Body, No Discharge, No Vision Changes Cardiovascular: No Chest Pain, No SOB, No Dyspnea on Exertion, No Orthopnea, No Edema, +Palpitations Respiratory: No Cough, No Sputum, No Wheezing, No Smoke Exposure, No Dyspnea Gastrointestinal: + Nausea, + Vomiting, No Diarrhea, No Constipation, + epigastric pain, No Hematochezia, No Melena Genitourinary: No irregular bleeding, No Dysuria, No Urinary Frequency, No Hematuria, No Urinary Incontinence/retention, No Urgency, No Flank Pain, No Urinary Flow Changes, No Hesitancy Musculoskeletal: No joint pain, No Myalgias, No Joint Swelling Skin: No Skin Lesions, No rash Neuro: No Weakness, No Numbness, No Paresthesias, No Loss of Consciousness, No Dizziness, No Headache Psych: No Anxiety/Panic, No Depression, No SI/HI/AH/VH, No Social Issues, Heme/Lymph: No Bruising, No Bleeding,No Lymphadenopathy Endocrine: No Polyuria, No Polydipsia, No Temperature Intolerance Yes all other systems are reviewed and are negative [facility] Past Medical History Attestation statement: The following information was validated with the patient. Source: old records reviewed Medical History Depression Acute anxiety Social History Social History Household Members: Significant Other and Children Housing: Apartment Do you presently have visiting nurse or other home services: No Alcohol intake: current Alcohol intake frequency: 3 or more drinks per day Alcohol type: hard liquor Patient Tobacco Use Status: Current everyday Tobacco user Tobacco use type: Cigarette and Smokeless Tobacco Years Smoked: 1 Smoked in Last 30 Days: Yes e-Cigarette/Vaping Use: Currently Using Second Hand Smoke Exposure: No Use of substances other than those prescribed or required for medical reasons: Yes Substance Use Type: Marijuana Advance Directives: No Advance Directives Information Provided: No Do you have a plan to hurt others: No Plan service: No Sexual orientation: Straight/Heterosexual Physical Exam ED Vital Signs: Vital Signs - 24 hr 11/08/24 15:00 11/08/24 15:18 11/08/24 16:41 Temperature 97.0 F 98 F Pulse Rate 126 H 92 Respiratory Rate 18 18 18 Blood Pressure 139/88 132/80 131/90 H Pulse Oximetry 96 98 97 Oxygen Delivery Method Room Air Room Air Room Air BMI result Body Mass Index 27.9 Appearance: Alert. Oriented X3. In mild distress, diaphoretic, shaky Eyes: Pupils equal, round and reactive to light. ENT: Pharynx normal. Neck: Normal inspection. Neck supple. CVS: Tachycardic heart rate normal rhythm. Pulses normal. Respiratory: No respiratory distress. Breath sounds normal. Lungs clear to auscultation bilaterally, no wheezes, rales, or rhonchi Abdomen: Soft and non-distended, very mild epigastric tenderness to palpation. +BS x4 Skin: Skin warm and dry. Normal skin color. Normal skin turgor. No rashes. Extremities: No lower extremity edema. Neuro: Oriented X 3. No motor deficit. No sensory deficit. CN II-XII intact. Course Course Course Narrative: This is a Rapid Medical Exam performed in triage by Radha Luna PA-C. Full HPI, ROS and PE to be performed by primary ED provider. 29yo M w/ZPMHx ETOH abuse presenting to the ED c/o ETOH withdrawal, last drank 2 nips few hrs ago, admits to drinking 2-3 sleeves of nips daily. ?seizures from ETOH withdrawal. Is trying to cut back on ETOH (x1yr - but is not interested in detox). Admits to heat racing & CP earlier today. PE: tachycardic, diaphoretic Plan: EKG, labs, UA, PABLO, CIWA Reevaluation(s) Reevaluation #1: Workup reassuring, chemistry revealing slight elevation in liver transaminases, AST at 39, TSH within normal limits. Overall workup today was reassuring however given severe alcohol withdrawal, patient needs to be admitted for monitoring, and feels are all. Patient is in agreement. Patient well-appearing, CIWA scale drop to 7. Discussed case with hospitalist, Dr. Blackman, transfer of care initiated. Time: 17:51 Medical Decision Making Medical Decision Making MDM Narrative: 29 year-old male with PMHx of alcohol use disorder, MDD presents to the ED today due to withdrawal from alcohol. He explains he usually drinks approximately 20 nips per day. His last drink consisted of 2 nips 2 hours ago. He states he has history of alcohol withdrawal where he feels generally unwell with shakes, racing heart, nausea, vomiting and sweating. He denies ever experiencing withdrawal seizures, or delirium. He explains he has participated in detox in the past and has talked to the [facility] [facility] addiction team. He states he wants to stop drinking at this time but is denying detox or meeting with addiction team on this visit. He denies chest pain, SOB, headache, visual changes, visual/auditory/tactile hallucinations, fever, bloody or bilious vomiting, black or bloody stool, diarrhea, or urinary symptoms. Patient in severe alcohol withdrawal, CIWA scale 17. Patients vital signs reveal tachycardic rate of 126 BPM, otherwise unremarkable. He is in no mild distress, is non-toxic appearing and looks mildly uncomfortable secondary to diaphoresis and tachycardia. He denies any chest pain. Labs are unremarkable with exception of elevated AST of 39, and ETOH level of 106. No evidence of electrolyte abnormality. EKG with no ST elevations/depressions or T wave abnormalities, troponin within normal limits, no evidence of ischemia or ACS. Lipase within normal limits no suspected pancreatitis. Will start IV LR fluids for repletion with phenobarbital to manage alcohol withdrawal. Patient does not want to meet with addiction team at this time. Will allow patient to rest and will observe for improvement of tachycardia and withdrawal symptoms and revisit the idea of talking to addiction team for aid/resources to manage alcohol dependence. Differential Diagnosis Differential Diagnoses: The differential diagnosis associated with the presentation includes alcohol intoxication, alcohol withdrawal, electrolyte abnormalities, ACS, pancreatitis Consult Healthcare Provider Management of the patient was discussed with: Hospitalist Lab Data [facility] Lab Attestation statement: I reviewed the patient's lab results. See MDM 11/08/24 15:17 11/08/24 15:17 Labs: Lab Results 11/08/24 Range/Units 15:17 WBC 5.4 (4.8-10.8) X10*3/uL RBC 4.98 (4.60-5.80) X10*6/uL Hgb 15.9 (14.0-18.0) g/dl Hct 45.1 (42.0-52.0) % MCV 90.6 (80.0-98.0) fL MCH 31.9 (27.0-33.0) pg MCHC 35.3 (31.0-36.0) g/dl RDW 11.1 (11.0-16.0) % Plt Count 220 D (160-400) X10*3/uL MPV 11.5 (9.4-12.4) fL Immature Gran % (Auto) 0.2 (0.0-0.4) % Neut % (Auto) 70.6 (45-73) % Lymph % (Auto) 21.8 (20-40) % [place] % (Auto) 6.8 (2-11) % Eos % (Auto) 0.2 (0-4) % Baso % (Auto) 0.4 (0-2) % Lymph # (Auto) 1.2 (1.2-4.9) X10*3/uL [place] # (Auto) 0.4 (0.1-1.2) X10*3/uL Eos # (Auto) 0.0 (0.0-0.4) X10*3/uL Baso # (Auto) 0.0 (0.0-0.2) X10*3/uL Abs Immat Gran (auto) 0.01 (0.00-0.03) X10*3/uL Absolute Neuts (auto) 3.8 (2.0-8.3) x10*3/uL Absolute Nucleated RBC 0.000 (0.0-0.012) X10*3/uL Nucleated RBC % (auto) 0.0 (0.0-0.2) /100WBC Sodium 142 (135-145) mmol/L Potassium 3.8 (3.3-5.1) mmol/L Chloride 108 (96-108) mmol/L Carbon Dioxide 24 (22-29) mmol/L Anion Gap 14 (12-20) BUN 11 (9-16) mg/dL Creatinine 1.13 (0.5-1.4) mg/dL Estim Creat Clear Calc 107.9 Estimated GFR > 60 Random Glucose 111 (60-115) mg/dL Calcium 9.2 (8.4-10.2) mg/dL Magnesium 2.0 (1.6-2.6) mg/dL Total Bilirubin 0.6 (0.0-1.0) mg/dL Direct Bilirubin 0.2 (0.0-0.5) mg/dL AST 39 H (5-37) U/L ALT 31 (0-40) U/L Alkaline Phosphatase 79 (39-117) U/L Troponin I High Sens < 2.7 (<3.5-35.0) ng/L Total Protein 7.3 (6.5-8.0) g/dL Albumin 4.4 (3.5-5.0) g/dL Lipase 14 (8-78) U/L TSH 0.35 (0.32-4.0) uIU/mL Ethyl Alcohol 106 mg/dL Independent Interpretation I performed an independent interpretation of an: EKG Interpretation: Vent. Rate : 99 BPM Atrial Rate : 99 BPM P-R Int : 126 ms QRS Dur : 86 ms QT Int : 332 ms P-R-T Axes : 62 23 36 degrees QTcB Int : 426 ms Normal sinus rhythm Normal ECG When compared with ECG of 16-Jul-2024 10:24, No significant change was found External Record Review External record reviewed: Inpatient record Chronic Conditions Patient?s care impacted by: Other (alcohol use disorder) Medications Administered Discontinued Medications Generic Name Dose Route Start Last Admin Trade Name Freq PRN Reason Stop Dose Admin Lactated Ringer's 2,000 mls @ 2,000 mls/hr 11/08/24 15:37 11/08/24 16:44 Lr IV 11/08/24 16:36 Infused .Q1H ONE Infusion Phenobarbital Sodium 292 mg 11/08/24 16:30 11/08/24 16:40 Phenobarbital Sodium 130 Mg/Ml Im Once IM 11/08/24 16:31 292 mg ONCE ONE Administration Protocol Discharge Plan Discharge Clinical Impression: Alcohol use disorder, severe, dependence, Alcohol withdrawal syndrome Patient Disposition: Admitted As Inpatient Prescriptions: No Action naltrexone 50 mg tablet 50 mg PO DAILY Qty: 30 0RF mirtazapine 7.5 mg Tablet 7.5 mg PO BEDTIME 30 Days Qty: 30 0RF gabapentin 300 mg Capsule 300 mg PO BEDTIME 30 Days Qty: 30 0RF Print Language: Luxembourgish
--- NOTE | 2024-11-08 15:01 | ECG_ITS ---
Test Reason : ETOH Blood Pressure : */* mmHG Vent. Rate : 99 BPM Atrial Rate : 99 BPM P-R Int : 126 ms QRS Dur : 86 ms QT Int : 332 ms P-R-T Axes : 62 23 36 degrees QTcB Int : 426 ms Normal sinus rhythm Normal ECG When compared with ECG of 16-Jul-2024 10:24, No significant change was found Referred By: Radha Luna Electronically Signed By: SELENE MAHER
[2024-11-08 15:24] LABS: MANUAL DIFF FLAG NO
[2024-11-08 15:39] LABS: Basophils Percent Auto 0.4 % (0-2); Eosinophils Percent Auto 0.2 % (0-4); Hematocrit 45.1 % (42.0-52.0); Hemoglobin 15.9 g/dl (14.0-18.0); Imm Gran Abs Auto 0.01 X10*3/uL (0.00-0.03); Imm Gran Pct Auto 0.2 % (0.0-0.4); Lymphocytes Absolute Auto 1.2 X10*3/uL (1.2-4.9); Lymphocytes Percent Auto 21.8 % (20-40); Mean Corpuscular HGB Conc 35.3 g/dl (31.0-36.0); Mean Corpuscular Hemoglobin 31.9 pg (27.0-33.0); Mean Corpuscular Volume 90.6 fL (80.0-98.0); Mean Platelet Volume 11.5 fL (9.4-12.4); Monocytes Absolute Auto 0.4 X10*3/uL (0.1-1.2); Monocytes Percent Auto 6.8 % (2-11); Neutrophils Absolute Auto 3.8 x10*3/uL (2.0-8.3); Neutrophils Percent Auto 70.6 % (45-73); Platelet Count 220 X10*3/uL (160-400); Red Blood Count 4.98 X10*6/uL (4.60-5.80); Red Cell Distribution Width 11.1 % (11.0-16.0); White Blood Count 5.4 X10*3/uL (4.8-10.8)
[2024-11-08] MEDS: Lactated Ringers 2,000 ML 2000 ML IV (15:49)
[2024-11-08 15:55] LABS: Alanine Aminotransferase 31 U/L (0-40); Albumin Level 4.4 g/dL (3.5-5.0); Anion Gap 14 (12-20); Aspartate Amino Transferase 39 U/L (5-37); Bilirubin Direct 0.2 mg/dL (0.0-0.5); Bilirubin Total 0.6 mg/dL (0.0-1.0); Blood Urea Nitrogen 11 mg/dL (9-16); Calcium 9.2 mg/dL (8.4-10.2); Carbon Dioxide 24 mmol/L (22-29); Chloride 108 mmol/L (96-108); Creatinine Clr Calc Pharmacy 107.9; Estimated Glomerular Filt Rate > 60; Ethanol 106 mg/dL; Glucose Random 111 mg/dL (60-115); Lipase 14 U/L (8-78); Potassium 3.8 mmol/L (3.3-5.1); Sodium 142 mmol/L (135-145); Total Protein 7.3 g/dL (6.5-8.0); Troponin-I High Sensitivity < 2.7 ng/L (<3.5-35.0)
[2024-11-08 16:06] LABS: TSH reflex Free T4 0.35 uIU/mL (0.32-4.0)
[2024-11-08 16:24] LABS: Alkaline Phosphatase 79 U/L (39-117)
[2024-11-08] MEDS: PHENobarbitaL sodium 130 MG/ML IM ONCE 292 MG IM (16:40)
--- NOTE | 2024-11-08 17:58 | P.HPHOSP_ITS ---
History of Present Illness Date of Service: 11/08/24 Chief Complaint: palpitations 29M PMH etoh dependence presented with palpitations. Patient reports feeling like he is in alcohol withdrawal. He usually drinks 20 nips per day last drink was 2 hours prior to presentation. Has been drinking less than usual. Complaining of shaking, palpitations, and just feeling like he is in withdrawal. CIWA was 17. Review of Systems 2 Review of Systems: Yes all other systems are reviewed and are negative [facility] Medical History Depression Acute anxiety Social History Household Members: Significant Other and Children Housing: Apartment Do you presently have visiting nurse or other home services: No Alcohol intake: current Alcohol intake frequency: 3 or more drinks per day Alcohol type: hard liquor Patient Tobacco Use Status: Current everyday Tobacco user Tobacco use type: Cigarette and Smokeless Tobacco Years Smoked: 1 Smoked in Last 30 Days: Yes e-Cigarette/Vaping Use: Currently Using Second Hand Smoke Exposure: No Use of substances other than those prescribed or required for medical reasons: Yes Substance Use Type: Marijuana Advance Directives: No Advance Directives Information Provided: No Do you have a plan to hurt others: No Plan service: No Sexual orientation: Straight/Heterosexual Meds Allergies Allergy/AdvReac Type Severity Reaction Status Date / Time No Known Allergies Allergy Verified 11/08/24 15:04 Active Medications: Current Medications Acetaminophen (Acetaminophen 325 Mg Tablet) 650 mg PO Q6H PRN PRN Reason: Pain, Mild 1-3,fever,headache Calcium Carbonate (Calcium Carbonate 750 Mg Tab.Chew) 750 mg PO Q4H PRN PRN Reason: Heartburn Magnesium Hydroxide (Milk Of Magnesia 30 Ml Oral.Susp) 30 ml PO DAILY PRN PRN Reason: Constipation Melatonin (Melatonin 3 Mg Tablet) 6 mg PO BEDTIME PRN PRN Reason: Insomnia Pharmacy Consult (Consult Rx Etoh Phenob Im/Po) 1 each MISCELLANE ONCE PRN; Protocol PRN Reason: Consult order Phenobarbital (Phenobarbital 15 Mg Tablet) 45 mg PO BID GUILLERMO; Protocol Stop: 11/10/24 21:01 Phenobarbital (Phenobarbital 15 Mg Tablet) 15 mg PO BID GUILLERMO; Protocol Stop: 11/12/24 21:01 Phenobarbital (Phenobarbital 15 Mg Tablet) 15 mg PO DAILY [facility]; Protocol Stop: 11/14/24 09:01 Phenobarbital Sodium (Phenobarbital Sodium 130 Mg/Ml Vial Im Q3hx2) 219 mg IM Q3H GUILLERMO; Protocol Stop: 11/08/24 22:31 Sodium Chloride (0.9 % Sodium Chloride Flush 3 Ml Syringe) 3 ml IVFLUSH QSHIFT [facility] Physical Exam 2 Vital Signs and Narrative: Vital Signs: Last Vital Signs Temp 98 F 11/08/24 16:41 Pulse 92 11/08/24 16:41 Resp 18 11/08/24 16:41 BP 131/90 H 11/08/24 16:41 Pulse Ox 97 11/08/24 16:41 O2 Del Method Room Air 11/08/24 16:41 BMI result Body Mass Index 27.9 General: AO X 3, no acute distress Resp: CTA bilateral, no accessory muscles used CVS: S1,S2,RRR GI: soft, non tender, non distended Neuro: motor grossly intact, alert Psych: appropriate affect, appropriate insight Results Labs 11/08/24 15:17 11/08/24 15:17 Labs: Laboratory Results - last 24 hr 11/08/24 15:17 MCV 90.6 MCH 31.9 MCHC 35.3 RDW 11.1 Plt Count 220 D MPV 11.5 Immature Gran % (Auto) 0.2 Neut % (Auto) 70.6 Lymph % (Auto) 21.8 [place] % (Auto) 6.8 Eos % (Auto) 0.2 Baso % (Auto) 0.4 Lymph # (Auto) 1.2 [place] # (Auto) 0.4 Eos # (Auto) 0.0 Baso # (Auto) 0.0 Abs Immat Gran (auto) 0.01 Absolute Neuts (auto) 3.8 Absolute Nucleated RBC 0.000 Nucleated RBC % (auto) 0.0 Anion Gap 14 Estim Creat Clear Calc 107.9 Estimated GFR > 60 Random Glucose 111 Calcium 9.2 Magnesium 2.0 Total Bilirubin 0.6 Direct Bilirubin 0.2 AST 39 H ALT 31 Alkaline Phosphatase 79 Total Protein 7.3 Albumin 4.4 Lipase 14 TSH 0.35 Ethyl Alcohol 106 Assessment and Plan (1) Alcohol use disorder, severe, dependence: Status: Acute Plan 29M PMH etoh dependence presented with palpitations Alcohol dependence with withdrawal Phenobarb, addiction eval, monitor CIWA Monitor LFTs Given high score of CIWA expected require at least 2 midnights inpatient to manage alcohol withdrawal symptoms Quality Stroke Does the patient have a stroke diagnosis?: No VTE Prior VTE?: No VTE Risk Level:: Medical - low VTE Device Contraindication: Treatment Not Indicated VTE Drug Contraindication: Treatment Not Indicated
[2024-11-08 18:12] LABS: Amphetamine Screen Urine Not Detected (Not Detect); Barbiturates, Urine POSITIVE (Not Detect); Benzodiazepines Screen Urine Not Detected (Not Detect); Buprenorphine Scr Not Detected (Not Detect); Cannabinoid Screen Urine Not Detected (Not Detect); Cocaine Screen Urine Not Detected (Not Detect); Fentanyl, urine Not Detected (Not Detect); Methadone Screen, Urine Not Detected (Not Detect); Opiate Screen Urine Not Detected (Not Detect); Oxycodone Screen Urine Not Detected (Not Detect); Phencyclidine Screen Urine Not Detected (Not Detect)
--- OUTSIDE RECORDS SUMMARY | 2024-11-08 18:24 | XMS_ITS | Continuity of Care Document ---
Author Organization [facility] Address [address] [place] [id number] Phone Care Team Providers Care Softwood Faller Name Role Phone Harpreet Gamino MD Unavailable [...] on Encounter NEW PATNT OV DTL EXAM [facility], [address] [facility], [place], [place], [id number], [place] tel:[phone] [facility] OLD right knee (chief complaint) Pain in right kneeTear of medial meniscus of right knee, current, unspecified tear type, initial encounter Hanny Mullins. [address], [id number] , [place]. tel:[phone] Referring Provider: Harpreet Lovell, [address] [place], [address] . tel:[phone] Family History Family Member Type Diagnosis Age At Onset No Information Payers Payer name Insurance type Covered alliance party ID Authoriza tipietro(s) [employer] CI [id number] Social History Type Description Quantity Date Captured [...] right knee - Patient education available at [email or web address] on the Education tab Related to Pain in right knee Assessments Type Assessment Date assessment Pain in right knee assessment Tear of medial menis cus of right knee, current, unspecified tear type, initial encounter Patient Care Teams Name Effective Dates (start - stop) Status Members No Information
--- OUTSIDE RECORDS SUMMARY | 2024-11-08 18:24 | XMS_ITS | Clinical Summary ---
Author Organization [facility] Address [address] [place] [phone] Phone Care Team Providers Care Residential Care Facility Manager Name Role Phone Unavailable Primary Care Provider Unavailabl e Immunizations Immunization Administration Dates Next Due DTP 1995,1995,1995 DTaP 5 12/02/1999,02/15/1998,01/23/1997 HPV, Quadrivalent 05/21/2013,07/21/2012,05/18/20 12 Hep A, ped/adol 05/23/2014 Hep B, ped/adol 1995,1995,1995 Hib (PRP-T) 09/18/1996, 6,1995, 996 IPV 12/02/1999 Influenza Split 05/21/2013,05/18/2012,05/22/2010 Influenza, injectable, quadrivalent 05/23/2014 MMR 12/02/1999,06/18/1996 Meningococcal Conj (Menactra) MCV4P 05/23/2014,0 08/10/2007 OPV 1995,1995,1995 Tdap 08/10/2007 Varicella 09/18/1996 Family History Relation Name Status Comments Brother Alive Brother: health y Father Alive Father: healthy Mother Alive Mother: Hyperli pidemia / Obesity / Migraines Other Family history of *Sudden /[place] under 55, Family history of *Heart Disease, Family history of Diabetes mellitus, Family history of *CVA/Stroke, Family history of Leukemia, Family history of *Dental caries Sister Alive Sister: Alive a nd well Social History Tobacco Use Types Packs/Day Years Used Date Smoking Tobacco: Never Comments:Never smoker Sex and Gender Information Value Date Recorded Sex Assigned at Not on file Legal Sex Male 4:52 PM EDT Gender Identity Not on file Sexual Orientation Not on file Last Filed Vital Signs Vital Sign Reading Time Taken Comments Blood Pressure 125/80 05/23/2014 12:00 AM EST Pulse 60 10/08/2013 12:00 AM EDT Temperature 36.4 ??C (97.6 ??F) 10/08/2013 12:00 AM E DT Respiratory Rate - - Oxygen Saturation - - Inhaled Oxygen Concentration - - Weight 76.4 kg (168 lb 6.4 oz) 05/23/2014 12:00 AM EST Height 175.3 cm (5' 9 ) 05/23/2014 12:00 AM EST Body Mass Index 24.87 05/23/2014 12:00 AM EST Plan of Treatment Health Maintenance Due Date Last Done Comments Varicella Vaccines (2 of 2 - 2-dose childhood series) 12/30/1999 09/18/1996 Hepatitis A Vaccines (2 of 2 - 2-dose series) 11/20/2014 05/23/2014 DTaP,Tdap,and Td Vaccines (7 - Td or Tdap) 08/10/2017 08/10/2007, 12/02/1999, 02/15/1998, Additional history exists Influenza Vaccines (#1) 2024 05/23/20 14, 05/21/2013, 05/18/2012, Additional history exists COVID-19 Vaccine ( season) 2024 Hepatitis B Vaccines Completed 1995, 1995, 1995 HIB Vaccines Completed 09/18/1996, 12/1995, 1995, Additional history exists IPV Vaccines Completed 12/02/1999, 12/1995, 1995, Additional history exists MMR Vaccines Completed 12/02/1999, 06/18/1996 HPV Vaccines Completed 05/21/2013, 10/2012, 05/18/2012 Meningococcal Vaccine Completed 05/23/2014, 008 Men B Vaccine Aged Out No longer elig ible based on patient's age to complete this topic Pneumococcal Vaccine Aged Out No long er eligible based on patient's age to complete this topic
--- OUTSIDE RECORDS SUMMARY | 2024-11-08 18:24 | XMS_ITS | Encounter Summary ---
Author Organization [facility] Address [address] [place] [phone] Phone Care Team Providers Care As400 Operator Name Role Phone Marcelino Nath MD Primary Care Provider [phone] Encounter Details Date Type Department Care Team (Late st Contact Info) Description 03/03/2017 Conversion Encounter [facility] [place] [address] [place] [address] Social History Tobacco Use Types Packs/Day Years Used Date Smoking Tobacco: Never Comments:Never smoker Sex and Gender Information Value Date Recorded Sex Assigned at Not on file Legal Sex Male 4:52 PM EDT Gender Identity Not on file Sexual Orientation Not on file documented as of this encounter Plan of Treatment Not on file documented as of this encounter Visit Diagnoses Not on filedocumented in this encounter Care Teams As400 Operator Relationship Specialty Start Date End Date Marcelino Nath MD [address] [place] [address] PCP - General 02/25/17 10/19/22 documented as of this encounter
--- OUTSIDE RECORDS SUMMARY | 2024-11-08 18:24 | XMS_ITS | Encounter Summary ---
Author Organization [facility] Address [address] [place] [phone] Phone Care Team Providers Care Math Tutor Name Role Phone Marcelino Nath MD Primary Care Provider [phone] Encounter Details Date Type Department Care Team (Late st Contact Info) Description 08/26/2011 Documentation [facility] [place] [address] [place] [address] Family Medicine, Physician [address] [place], [place] [id number] Social History Tobacco Use Types Packs/Day Years Used Date Smoking Tobacco: Never Assessed Sex and Gender Information Value Date Recorded Sex Assigned at Not on file Legal Sex Male 4:52 PM EDT Gender Identity Not on file Sexual Orientation Not on file documented as of this encounter Plan of Treatment Not on file documented as of this encounter Visit Diagnoses Not on filedocumented in this encounter Care Teams Math Tutor Relationship Specialty Start Date End Date Marcelino Nath MD [address] [place] [address] [place] [id number] PCP - General 02/25/17 10/19/22 documented as of this encounter
[2024-11-08] MEDS: PHENobarbitaL sodium 130 MG/ML VIAL IM Q3Hx2 219 MG IM ×2 (19:49→22:44)
--- NOTE | 2024-11-08 20:39 | PHA.MEDREC ---
Addendum entered by Jay Naqvi [facility] 11/08/24 20:56: MED REC CHECKED BY [facility] Original Note: Pharmacy Consult ? Medication Reconciliation Pharmacy has completed the medication reconciliation. Patient states he is not taking any medications.
[2024-11-09] MEDS: Melatonin 3 MG TABLET 6 MG PO (01:20)
[2024-11-09 04:00] VITALS: BP 127/86; PULSE 82; RESP 17; TEMP 36.9; O2SAT 100
[2024-11-09 07:16] LABS: INTERNATIONAL NORM RATIO 0.9 (0.9-1.1); Prothrombin Time 10.7 SEC (10.9-12.4)
[2024-11-09 07:18] LABS: Hematocrit 40.6 % (42.0-52.0); Hemoglobin 14.3 g/dl (14.0-18.0); Mean Corpuscular HGB Conc 35.2 g/dl (31.0-36.0); Mean Corpuscular Hemoglobin 32.3 pg (27.0-33.0); Mean Corpuscular Volume 91.6 fL (80.0-98.0); Mean Platelet Volume 11.9 fL (9.4-12.4); Platelet Count 176 X10*3/uL (160-400); Red Blood Count 4.43 X10*6/uL (4.60-5.80); Red Cell Distribution Width 10.9 % (11.0-16.0); White Blood Count 7.3 X10*3/uL (4.8-10.8)
[2024-11-09 07:20] LABS: Alanine Aminotransferase 26 U/L (0-40); Albumin Level 3.7 g/dL (3.5-5.0); Alkaline Phosphatase 74 U/L (39-117); Anion Gap 11 (12-20); Aspartate Amino Transferase 40 U/L (5-37); Bilirubin Direct 0.4 mg/dL (0.0-0.5); Bilirubin Total 0.9 mg/dL (0.0-1.0); Blood Urea Nitrogen 10 mg/dL (9-16); Calcium 9.2 mg/dL (8.4-10.2); Carbon Dioxide 26 mmol/L (22-29); Chloride 105 mmol/L (96-108); Creatinine Clr Calc Pharmacy 136.7; Estimated Glomerular Filt Rate > 60; Glucose Random 83 mg/dL (60-115); Magnesium 1.8 mg/dL (1.6-2.6); Potassium 3.9 mmol/L (3.3-5.1); Sodium 138 mmol/L (135-145); Total Protein 6.1 g/dL (6.5-8.0)
[2024-11-09 07:44] VITALS: BP 142/92; PULSE 84; RESP 16; TEMP 36.4; O2SAT 98
--- NOTE | 2024-11-09 08:36 | MHC.CM.PN ---
CM met with Patient at bedside. Patient lives in an apartment with his Girlfriend and he required no services nor DME [employer] OR [employer]. Home self care vs Recovery Team intervention r/t ETOH is the tentative plan and CM has initiated and will follow for dc planning. PCP is from [facility] and Patient's car is here for transport to home at time of dc. Patient declined completing a HCP.
[2024-11-09] MEDS: PHENobarbitaL 15 MG TABLET 45 MG PO (08:47)
[2024-11-09] MEDS: 0.9 % Sodium Chloride Flush 3 ML SYRINGE IVFLUSH (08:47)
--- NOTE | 2024-11-09 10:14 | P.DS_ITS ---
DS: Providers Provider Date of Service: 11/09/24 Date of admission: 11/08/24 17:47 Date of discharge: 11/09/24 Primary care physician: [facility] Consults: 11/08/24 17:06 Addiction Medicine Provider Stat Consulting Provider: Justin Covering Reason for consultation: etoh abuse 11/09/24 09:42 Inpt - Recovery Team Routine Comment: Reason for consultation: MUKUND eval--AUD DS: Diagnosis Discharge Diagnosis (1) Alcohol use disorder, severe, dependence: Status: Acute DS: Summary Hospital Course Hospital Course: from initial hpi: 29M PMH etoh dependence presented with palpitations. Patient reports feeling like he is in alcohol withdrawal. He usually drinks 20 nips per day last drink was 2 hours prior to presentation. Has been drinking less than usual. Complaining of shaking, palpitations, and just feeling like he is in withdrawal. CIWA was 17. hospital course: Patient was admitted for alcohol dependence with withdrawal. Was put on phenobarbital protocol and symptoms resolved. He was now feeling much better will be discharged home. He was encouraged to stop drinking alcohol and to continue vitamin supplements. He was seen by Addiction team who provided patient with guidance on literature. Time Attestation Discharge Coordination Time (in mins): 37 Quality: Safe Use of Opioids Does Pt have an Active Cancer Diagnosis on the Problem List?: No Quality: Stroke Does the patient have a stroke diagnosis?: No Physical Exam Vital Signs: Vital Signs: Last Vital Signs Temp 97.5 F 11/09/24 07:44 Pulse 84 11/09/24 07:44 Resp 16 11/09/24 07:44 BP 142/92 H 11/09/24 07:44 Pulse Ox 98 11/09/24 07:44 O2 Del Method Room Air 11/09/24 07:44 BMI result Body Mass Index 28.5 General: AO X 3, no acute distress Resp: CTA bilateral, no accessory muscles used CVS: S1,S2,RRR GI: soft, non tender, non distended Neuro: motor grossly intact, alert Psych: appropriate affect, appropriate insight DS: Data Data Completed and Pending Labs on day of discharge: Laboratory Results - last 24 hr 11/08/24 11/08/24 11/09/24 15:17 17:45 06:28 WBC 5.4 7.3 RBC 4.98 4.43 L Hgb 15.9 14.3 Hct 45.1 40.6 L MCV 90.6 91.6 MCH 31.9 32.3 MCHC 35.3 35.2 RDW 11.1 10.9 L Plt Count 220 D 176 MPV 11.5 11.9 Immature Gran % (Auto) 0.2 Neut % (Auto) 70.6 Lymph % (Auto) 21.8 [place] % (Auto) 6.8 Eos % (Auto) 0.2 Baso % (Auto) 0.4 Lymph # (Auto) 1.2 [place] # (Auto) 0.4 Eos # (Auto) 0.0 Baso # (Auto) 0.0 Abs Immat Gran (auto) 0.01 Absolute Neuts (auto) 3.8 Absolute Nucleated RBC 0.000 0.000 Nucleated RBC % (auto) 0.0 0.0 PT 10.7 L INR 0.9 Sodium 142 138 Potassium 3.8 3.9 Chloride 108 105 Carbon Dioxide 24 26 Anion Gap 14 11 L BUN 11 10 Creatinine 1.13 0.90 Estim Creat Clear Calc 107.9 136.7 Estimated GFR > 60 > 60 Random Glucose 111 83 Calcium 9.2 9.2 Magnesium 2.0 1.8 Total Bilirubin 0.6 0.9 Direct Bilirubin 0.2 0.4 AST 39 H 40 H ALT 31 26 Alkaline Phosphatase 79 74 Troponin I High Sens < 2.7 Total Protein 7.3 6.1 L Albumin 4.4 3.7 Lipase 14 TSH 0.35 Urine Opiates Screen Not Detected Ur Buprenorphine Scrn Not Detected Ur Oxycodone Screen Not Detected Urine Methadone Screen Not Detected Urine Fentanyl Screen Not Detected Ur Barbiturates Screen POSITIVE H Ur Phencyclidine Scrn Not Detected Ur Amphetamines Screen Not Detected U Benzodiazepines Scrn Not Detected Urine Cocaine Screen Not Detected U Marijuana (THC) Screen Not Detected Ethyl Alcohol 106 Discharge Plan Discharge Anticipated Discharge Date/Time: 11/09/24 10:13 Patient Disposition: Home, Self-Care Discharge Diagnosis: etoh withdrawal Referrals: [facility] [Primary Care Provider] - 1 Week Discharge Medications: New thiamine HCl (vitamin B1) 100 mg capsule 100 mg PO DAILY Qty: 90 0RF multivitamin with folic acid 400 mcg tablet 1 tab PO DAILY Qty: 90 0RF Discharge Orders: Discharge Order (Routine); Ordered 11/09/24 Ordered By: Dk Blackman Diet: Advance to usual diet Activity on Discharge: As tolerated Stand Alone Forms: Patient Portal Discharge page Print Language: Emirati Care Plan Goals: recovery Health Concerns: etoh Plan of Treatment: avoid etoh take vitamins Assessment: see above
--- NOTE | 2024-11-09 10:28 | HO.ADDICT_ITS ---
History of Present Illness Date of Service: 11/09/2024 Chief Complaint: ETOH withdrawal Reason for Consult: AUD HPI Narrative: Patient is a 29 year old male, with history of depression and AUD, medically admitted after presenting to [facility] ED with acute alcohol withdrawal sx. Patient seen in room 450. He is awake, alert, pleasant and engaged in interview. Patient known to t/w via outpatient treatment at [facility]. Patient reports he started drinking again about a week ago, after abstaining for over a month. He can not identify precipitant, but does report poor sleep and increasing stress at home (has 2 children, and is currently ) He had been admitted to [facility] in September for a week and he found that helpful. He had also been working and going to the gym regularly. Prior to admission he was drinking btwn 15-20 nips daily. Appears comfortable, denies any withdrawal sx Discussed NIKKIE--he had been prescribed Naltrexone in the past, but has not been taking it. He is engaged in treatment with Dr. Marsh at [facility]. AUDIT-C Brief Intervention This journalists and other writers met with patient to discuss current alcohol use and concerns related to increased risk of alcohol related problems. Discussed how alcohol use has impacted health, including negative impact on mental health and overall physical wellbeing. Discussed risk reduction strategies including drinking below the recommended limit. Past Psychiatric History: Denies. Review of Systems Constitutional: Reports as per HPI and Reports no additional constitutional complaints Diagnostics Vital Signs (24Hr): Vital Signs - 24 hr 11/08/24 15:00 11/08/24 15:18 11/08/24 16:41 Temperature 97.0 F 98 F Pulse Rate 126 H 92 Respiratory Rate 18 18 18 Blood Pressure 139/88 132/80 131/90 H Pulse Oximetry 96 98 97 Oxygen Delivery Method Room Air Room Air Room Air 11/08/24 18:05 11/08/24 20:13 11/08/24 20:28 Temperature 98.9 F Pulse Rate 108 H 101 H 83 Respiratory Rate 18 18 16 Blood Pressure 122/80 135/80 145/85 H Pulse Oximetry 97 96 96 Oxygen Delivery Method Room Air Room Air Room Air 11/08/24 23:19 11/09/24 04:00 11/09/24 07:44 Temperature 97.6 F 98.5 F 97.5 F Pulse Rate 75 82 84 Respiratory Rate 16 17 16 Blood Pressure 130/81 127/86 142/92 H Pulse Oximetry 97 100 98 Oxygen Delivery Method Room Air Room Air Room Air BMI result Body Mass Index 28.5 Labs 11/09/24 06:28 11/09/24 06:28 Labs: Laboratory Results - last 48 hr 11/08/24 11/08/24 11/09/24 15:17 17:45 06:28 WBC 5.4 7.3 RBC 4.98 4.43 L Hgb 15.9 14.3 Hct 45.1 40.6 L MCV 90.6 91.6 MCH 31.9 32.3 MCHC 35.3 35.2 RDW 11.1 10.9 L Plt Count 220 D 176 MPV 11.5 11.9 Immature Gran % (Auto) 0.2 Neut % (Auto) 70.6 Lymph % (Auto) 21.8 [place] % (Auto) 6.8 Eos % (Auto) 0.2 Baso % (Auto) 0.4 Lymph # (Auto) 1.2 [place] # (Auto) 0.4 Eos # (Auto) 0.0 Baso # (Auto) 0.0 Abs Immat Gran (auto) 0.01 Absolute Neuts (auto) 3.8 Absolute Nucleated RBC 0.000 0.000 Nucleated RBC % (auto) 0.0 0.0 PT 10.7 L INR 0.9 Sodium 142 138 Potassium 3.8 3.9 Chloride 108 105 Carbon Dioxide 24 26 Anion Gap 14 11 L BUN 11 10 Creatinine 1.13 0.90 Estim Creat Clear Calc 107.9 136.7 Estimated GFR > 60 > 60 Random Glucose 111 83 Calcium 9.2 9.2 Magnesium 2.0 1.8 Total Bilirubin 0.6 0.9 Direct Bilirubin 0.2 0.4 AST 39 H 40 H ALT 31 26 Alkaline Phosphatase 79 74 Troponin I High Sens < 2.7 Total Protein 7.3 6.1 L Albumin 4.4 3.7 Lipase 14 TSH 0.35 Urine Opiates Screen Not Detected Ur Buprenorphine Scrn Not Detected Ur Oxycodone Screen Not Detected Urine Methadone Screen Not Detected Urine Fentanyl Screen Not Detected Ur Barbiturates Screen POSITIVE H Ur Phencyclidine Scrn Not Detected Ur Amphetamines Screen Not Detected U Benzodiazepines Scrn Not Detected Urine Cocaine Screen Not Detected U Marijuana (THC) Screen Not Detected Ethyl Alcohol 106 Mental Status Exam Mental Status Exam Patient Appearance: Appropriate Patient Orientation: Person, Place, Time and Situation Level of Consciousness: Awake, Appropriate and Alert Patient Behavior: Appropriate and Poor Eye Contact Affect Description: Flat Speech Pattern: Clear Hallucinations: None Thought Content: positive for Intact Judgement: Good Medications Medications Current Medications Acetaminophen (Acetaminophen 325 Mg Tablet) 650 mg PO Q6H PRN PRN Reason: Pain, Mild 1-3,fever,headache Calcium Carbonate (Calcium Carbonate 750 Mg Tab.Chew) 750 mg PO Q4H PRN PRN Reason: Heartburn Magnesium Hydroxide (Milk Of Magnesia 30 Ml Oral.Susp) 30 ml PO DAILY PRN PRN Reason: Constipation Melatonin (Melatonin 3 Mg Tablet) 6 mg PO BEDTIME PRN PRN Reason: Insomnia Last Admin: 11/09/24 01:20 Dose: 6 mg Pharmacy Consult (Consult Rx Etoh Phenob Im/Po) 1 each MISCELLANE ONCE PRN; Protocol PRN Reason: Consult order Phenobarbital (Phenobarbital 15 Mg Tablet) 45 mg PO BID [facility]; Protocol Stop: 11/10/24 21:01 Last Admin: 11/09/24 08:47 Dose: 45 mg Phenobarbital (Phenobarbital 15 Mg Tablet) 15 mg PO BID [facility]; Protocol Stop: 11/12/24 21:01 Phenobarbital (Phenobarbital 15 Mg Tablet) 15 mg PO DAILY [facility]; Protocol Stop: 11/14/24 09:01 Sodium Chloride (0.9 % Sodium Chloride Flush 3 Ml Syringe) 3 ml IVFLUSH QSHIFT [facility] Last Admin: 11/09/24 08:47 Dose: 3 ml Allergies Allergies Allergy/AdvReac Type Severity Reaction Status Date / Time No Known Allergies Allergy Verified 11/08/24 15:04 Assessment & Plan Assessment & Plan (1) Alcohol use disorder, severe, dependence: Status: Acute Code(s): F10.20 - Alcohol dependence, uncomplicated Assessment and Plan: * naltrexone refilled * follow up appt scheuled with [facility] * encouraged to explore additional recovery supports at [facility]--groups, recovery coaching etc * mirtazipine for sleep and basic sleep hygiene education Total time managing care of this patient today __40__ minutes. [facility] Past Medical History Medical History Depression Acute anxiety Social History Social History Household Members: Significant Other and Children Housing: Apartment Do you presently have visiting nurse or other home services: No Alcohol intake: current Alcohol intake frequency: 3 or more drinks per day Alcohol type: hard liquor Patient Tobacco Use Status: Former Tobacco user Tobacco use type: Cigarette and Smokeless Tobacco Years Smoked: 1 e-Cigarette/Vaping Use: Former Use Second Hand Smoke Exposure: No Substance Use Type: Marijuana service: No Sexual orientation: Straight/Heterosexual
[2024-11-09] MEDS: Thiamine HCL 100 MG in 0.9 % Sodium Chloride 100 ML 202 MG IV (10:33)
--- NOTE | 2024-11-09 10:33 | MHC.CM.PN ---
Patient has been medically cleared for dc to home today, self care.
== END 2024-11-09 11:30 | disposition home or self-care (01) | DRG 775 ==
LOC: HO.ED 17:53 → HO.EDOVER 17:54 → HO.IMC 19:09
PROVIDERS: Physician Assistant; Admitting Provider Internal Medicine; Emergency Provider Emergency Medicine; PCP Internal Medicine; Visit Provider Internal Medicine
DX: F10.239 Alcohol dependence with withdrawal, unspecified (principal); Y90.5 Blood alcohol level of 100-119 mg/100 ml; Z87.891 Personal history of nicotine dependence; Z79.899 Other long term (current) drug therapy
CPT/HCPCS: 36415; 80048; 80076; 80307; 83690; 83735; 84443; 84484; 85025; 85027; 85610; 93005; 99285; J2560; J3411; J7120; S9485

== ENCOUNTER → 2024-11-08 15:01 | Outpatient (BNV) | payer MEDICAID, SELFPAY | PROVIDERS: Admitting Provider Internal Medicine; Emergency Provider Emergency Medicine; Visit Provider Internal Medicine | DX: F10.90 Alcohol use, unspecified, uncomplicated (principal) | CPT/HCPCS: 93010 ==

== ENCOUNTER → 2024-11-08 17:47 | Outpatient (BNV) | payer MEDICAID, SELFPAY | PROVIDERS: Admitting Provider Internal Medicine; Emergency Provider Emergency Medicine; Visit Provider Internal Medicine | DX: F10.20 Alcohol dependence, uncomplicated (principal) | CPT/HCPCS: 99222 ==

== ENCOUNTER → 2024-11-08 17:47 | Outpatient (BNV) | payer OTHER, SELFPAY | PROVIDERS: Admitting Provider Internal Medicine; Emergency Provider Emergency Medicine; Visit Provider Nurse Practitioner Psychiatric/Mental Health | DX: F10.20 Alcohol dependence, uncomplicated (principal) | CPT/HCPCS: 99232 ==

== ENCOUNTER 2025-06-26 16:05 | Outpatient (AMB) | payer MEDICAID, SELFPAY ==
--- NOTE | 2025-06-26 16:08 | A.OFFVISCC_ITS ---
Vital Signs 06/26/25 16:10 Height 5 ft 10 in Weight 216 lb BMI 31.0 BP 110/70 Blood Pressure Location Rt brachial Position Sitting Pulse 99 Pulse Source Pulse Oximeter Pulse Oximetry (%) 98 Oxygen Delivery Method Room Air Intake Visit Reasons: MAT Intake Allergies No Known Allergies Allergy (Verified 06/26/25 16:11) HPI Comments Details: A 30-year-old male presents for a MAT visit r/t AUD. Reports drinking up to 25 nips per day for the past 10 years. He has had brief periods of sobriety and has been engaged in treatment in the past. Reports working full-time from 16:00 to 03:00 4 days per week, is and has 3 children. He states he is ready to work towards sobriety with the assistance of medication and support services. Physical Exam Vital Signs: Last Vital Signs Pulse 99 06/26/25 16:10 BP 110/70 06/26/25 16:10 Pulse Ox 98 06/26/25 16:10 Oxygen Delivery Method Room Air 06/26/25 16:10 BMI result Body Mass Index 31.0 Results AMB 14 Panel Urine Drug Screen Urine Marijuana (THC) Negative Last Edit by Sly Jarvis CMA on 06/26/25 16:15 Urine Cocaine Negative Last Edit by Sly Jarvis CMA on 06/26/25 16:15 Urine Morphine Negative Last Edit by Sly Jarvis CMA on 5 16:15 Urine Methamphetamine Negative Last Edit by Sly Jarvis CMA on 06/26/25 16:15 Urine Amphetamine Negative Last Edit by Sly Jarvis CMA on 06/26/25 16:15 Urine Benzodiazepine Negative Last Edit by Sly Jarvis CMA on 06/26/25 16:15 Urine Barbiturates Negative Last Edit by Sly Jarvis CMA on 06/26/25 16:15 Urine Methadone Negative Last Edit by Sly Jarvis CMA on 16:15 Urine Buprenorphine Positive Last Edit by Sly Jarvis CMA on 06/26/25 16:15 Urine Tricyclic Antidepressant Negative Last Edit by Sly Jarvis CMA on 06/26/25 16:15 Urine MDMA Negative Last Edit by Sly Jarvis CMA on 06/26/25 16 :15 Urine Oxycodone Negative Last Edit by Sly Jarvis CMA on 16:15 Urine Phencyclidine Negative Last Edit by Sly Jarvis CMA on 06/26/25 16:15 Urine Propoxyphene Negative Last Edit by Sly Jarvis CMA on 06/26/25 16:15 Results Reviewed Results Reviewed: Laboratory Last Values POC Urine Buprenorphine Positive 06/26/25 16:14 POC Urine Morphine Negative 06/26/25 16:14 POC Urine Oxycodone Negative 06/26/25 16:14 POC Urine Methadone Negative 06/26/25 16:14 POC Urine Propoxyphene Negative 06/26/25 16:14 POC Urine Barbiturates Negative 06/26/25 16:14 POC U Tricyclic Antidpr Negative 06/26/25 16:14 POC Urine PCP Negative 06/26/25 16:14 POC Ur Amphetamines Negative 06/26/25 16:14 POC Ur Methamphetamine Negative 06/26/25 16:14 POC Urine MDMA Negative 06/26/25 16:14 POC Ur Benzodiazepine Negative 06/26/25 16:14 POC Urine Cocaine Negative 06/26/25 16:14 POC Ur Marijuana (THC) Negative 06/26/25 16:14 PFSH Medical History Depression Acute anxiety Social History Household Members: Significant Other and Children Housing: Apartment Do you presently have visiting nurse or other home services: No Alcohol intake: current Alcohol intake frequency: 3 or more drinks per day Alcohol type: hard liquor Patient Tobacco Use Status: Former Tobacco user Tobacco use type: Cigarette and Smokeless Tobacco Years Smoked: 1 e-Cigarette/Vaping Use: Former Use Second Hand Smoke Exposure: No Substance Use Type: Marijuana service: No Sexual orientation: Straight/Heterosexual Social History: Lives with girlfriend, 2 kids (3 & 8 y/o), works full-time as a cook. High school diploma. Substance History: Patient reports drinking 12 nips daily for the past year. Denies history of withdrawal seizures. Denies any other substance use. Trauma History: Denies Assessment & Plan Assessment & Plan (1) Alcohol use disorder, severe, dependence: Code(s): F10.20 - Alcohol dependence, uncomplicated Category: Medical Plan The plan of care is to start on naltrexone 1/2 tablet for 4 days then 1 tablet daily, thiamine 100 mg, folic acid 1 mg, and buspirone 5 mg BID for symptoms of anxiety. Education provided re: naltrexone, folic acid, thiamine, and buspirone including purpose, general medication information, and side effects. Additional education re: risk reduction activities to minimize alcohol consumption and detox programs, importance of monitoring for withdrawal symptoms and calling 911 or going to nearest emergency department, if they develop. control panel assembler provided additional education, welcome packet, and community resources including referral for a peer manager recovery and mental health services. Orders: Orders AMB 14 Panel Urine Drug Screen Today Z51.81 - Encounter for therapeutic drug level monitoring Medications: New folic acid Take 1 tablet daily 1 mg PO DAILY 90 tabs 0RF 90 days naltrexone Take 1/2 tablet for 4 days then 1 tablet daily 50 mg PO DAILY 30 tabs 0RF 30 days thiamine mononitrate (vit B1) Take 1 tablet daily 100 mg PO DAILY 90 tabs 0RF 90 days buspirone Take 1 tablet twice per day 5 mg PO BID 60 tabs 0RF 30 days Patient Instructions: - Start on naltrexone tablets 50 mg, folic acid, thiamine, and buspirone as prescribed. - Engage in risk reduction activities to minimize alcohol consumption. - Follow-up with community resources for support service, detox programs, and monitor for signs and symptoms of withdrawals. - Call 911 or go to nearest emergency department if symptoms of withdrawals develop. - Follow-up in 1 week or sooner if needed. - Call with questions, concerns, or to report side effects/new onset of symptoms to [facility]. - The patient verbalized understanding and agreed with plan of care. 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 What is your current relationship status?: Referral Source: previous intake 04/04/24 @ [facility] Details: Was not ready at [facility] to,e Substance Abuse History Substance Abuse History (includes route, frequency and quantity): Alcohol (has been drinking 10-25 nips daily for the past year) and Marijuana (occasionally) Social History Domestic Violence concerns: no Children: 3 Do you have a support system?: yes Current mode of transportation?: own/self Where are you currently residing?: [place] LMP: NA IV Drug Use Have you ever shared needles?: No Have you ever belonged to a needle exchange program?: No Do you buy needles at a pharmacy?: No Have you ever overdosed?: No Number of lifetime overdoses: 0 Have you ever been hospitalized for an overdose?: No Was Naloxone administered?: No Recovery History Have you had any periods of recovery?: Yes What is your longest time in recovery?: last July When was the last time you were in recovery?: one month Have you ever had inpatient treatment for your substance abuse disorder?: No Have you been in an inpatient detoxification program?: Yes Have you been in an inpatient Rehab/[place] house?: No Have you been in an outpatient Methadone Maintenance program?: No Have you been in an outpatient Suboxone Maintenance program?: No Have you been in an AA/NA support program?: Yes Have you had a Recovery Support Supervisor Instrument Repair?: No (referral being entered) Have you had Peer Support?: No Behavioral Health History Do you have a current provider? If so, who?: no- referral being sent to [facility] on Ludwin's behalf History of other addictive behavior: no History of inpatient psychiatric hospitalization? If so, how many? Most Recent? Where?: i History of self harming thoughts?: No History of homicidal or suicidal intentions?: No Medical Conditions Endocarditis?: No Skin Infection: No Seizure related to withdrawal or overdose: No Head or brain injury: No Hepatitis B (if yes, have you been treated?): No Hepatitis C (if yes, have you been treated?): No HIV (if yes, have you been treated?): No TB (if yes, have you been treated?): No Other: No Legal History History of incarceration: No Currently on parole or probation: No Court mandated programs: No Pending court cases: No DCF involvement: No
[2025-06-26 16:10] VITALS: BP 110/70; PULSE 99; O2SAT 98; BMI 31.0
--- OUTSIDE RECORDS SUMMARY | 2025-06-27 00:47 | XMS_ITS | Encounter Summary ---
Author Organization [facility] Address [address] [place] [phone] Phone Care Team Providers Care Search Lead Name Role Phone Marcelino Nath MD Primary Care Provider [phone] Encounter Details Date Type Department Care Team (Late st Contact Info) Description 08/26/2011 Documentation [facility] Family Medicine [address] [place] [address] Family Medicine, Physician [address] [place], [place] [id number] Social History Tobacco Use Types Packs/Day Years [...] on filedocumented in this encounter Care Teams Search Lead Relationship Specialty Start Date End Date Marcelino Nath MD [address] [place] [address] K[place] Shell [id number] PCP - General 02/25/17 10/19/22 documented as of this encounter
--- OUTSIDE RECORDS SUMMARY | 2025-06-27 00:47 | XMS_ITS | Clinical Summary ---
Author Organization [facility] Address [address] [place] [phone] Phone Care Team Providers Care Identity Access Management Architect Name Role Phone Unavailable Primary Care Provider [...] / Migraines Other Family history of *Sudden /[place] under 55, Family history of *Heart Disease, [...] 60 10/08/2013 12:00 AM EDT Temperature 36.4 C (97.6 F) 10/08/2013 12:00 AM EDT Respiratory Rate - - Oxygen Saturation - [...] 02/15/1998, Additional history exists Influenza Vaccines (#1) 2025 05/23/20 14, 05/21/2013, 05/18/2012, Additional history exists COVID-19 Vaccine (2024- season) 2025 Hepatitis B Vaccines Completed 1995, 1995, 1995 [...]
--- OUTSIDE RECORDS SUMMARY | 2025-06-27 00:47 | XMS_ITS | Clinical Summary ---
Author Organization [employer] Address [address] [place] [address] Care Team Providers Care Marketing Admin Name Role Phone Unavailable Primary Care Provider Unavailabl e Allergies No known active allergies Medications * This document contains information received from the source organization and may not represent a complete record from that organization. naltrexone (Depade) 50 MG tabletIndication s:Alcohol use disorder, severe, dependence (CMS/HCC) (HCC) Take 1 tablet (50 mg) by mouth Once per day. 30 tablet 11 10/12/2024 Active Social History Tobacco Use Types Packs/Day Years Used Date Smoking Tobacco: Never Assessed Sex and Gender Information Value Date Recorded Sex Assigned at Male 08/03/2024 1:20 PM EST Legal Sex Male 11:18 AM EDT Gender Identity Male 08/03/2024 1:20 PM EST Sexual Orientation Straight 08/03/2024 1: 33 PM EST Last Filed Vital Signs Vital Sign Reading Time Taken Comments Blood Pressure 152/98 08/03/2024 2:28 PM EST Pulse 89 08/03/2024 2:28 PM EST Temperature 37 C (98.6 F) 08/03/2024 2:28 PM EST Respiratory Rate 20 08/03/2024 2:28 PM EST Oxygen Saturation - - Inhaled Oxygen Concentration - - Weight 89.8 kg (198 lb 0.2 oz) 08/03/2024 2:28 P M EST Height - - Body Mass Index - - Plan of Treatment Upcoming Encounters Date Type Department Care Team ([facility] st Contact Info) Description 07/08/2025 9:30 AM EST Office Visit [facility] [address] [place] [address] Jovanny Marsh MD [address] [place] [address] Health Maintenance Due Date Last Done Comments Depression Screening 1995 SDOH Screening 1995 Disability Screening 1995 Alcohol/Substance Use Screening 2007 Tobacco Screening 2007 Family Planning (PISQ) 2010 Pneumococcal Vaccine: Pediatrics (0 to 5 Years) and At-Risk Patients (6 to 49) Years (1 of 2 - PCV) 2014 Hepatitis A Vaccines (2 of 2 - 2-dose series) 11/20/2014 05/23/2014 DTaP/Tdap/Td Vaccines (8 - Td or Tdap) 06/20/2023 06/20/2013, 08/10/2007, 12/02/1999, Additional history exists COVID-19 Vaccine ( - 2024- season) 2025 Influenza Vaccine (#1) 2025 4, 05/21/2013, 05/18/2012, Additional history exists Zoster Vaccines (1 of 2) 2045 RSV Patients and Patients Aged 60 years or older (1 - 1-dose 75+ series) 2070 Hepatitis B Vaccines Completed 1995, 1995, 1995 HIB Vaccines Completed 09/18/1996, 12/1995, 1995, Additional history exists IPV Vaccines Completed 12/02/1999, 12/1995, 1995, Additional history exists HPV Vaccines Completed 05/21/2013, 10/2012, 05/18/2012 Meningococcal Vaccine Completed 05/23/2014, 008 HIV Screening Completed 08/03/2024 Hepatitis C Screening Completed 08/03/2024 Meningococcal B Vaccine Aged Out No l onger eligible based on patient's age to complete this topic RSV under 20 months Aged Out No longe r eligible based on patient's age to complete this topic Rotavirus Vaccines Aged Out No longer eligible based on patient's age to complete this topic Procedures Procedure Name Priority Date/Time Associated Diagnosis Comments HEPATITIS C AB W/REFL TO HCV RNA, QN, PCR Routine 08/03/2024 3:00 PM EST Alcohol use disorder, severe, dependence (CMS/HCC) HIV 1/2 ANTIGEN/ANTIBODY, FOURTH GENERATION W/RFL Routine 08/03/2024 3:00 PM EST Alcohol use disorder, severe, dependence (CMS/HCC) from Last 3 Months or Most Recently Relevant to Health Maintenance Results * Hepatitis C Antibody with Reflex to HCV, RNA, Quantitative, Real-Time PCR (08/03/2024 3:00 PM EST) Hepatitis C Antibody Nonreactive Nonreactive [facility] Comment:Antibodies to HCV no t detected; does not exclude early acuteHCV infection. Blood Venous blood specimen / Unknown 08/03/2024 3:00 PM EST 08/03/2024 4:07 PM EST Jovanny Marsh MD LAB BLOOD ORDERABLES Final Resul t [facility] [address] [place] [phone] * HIV-1/2 Antigen and Antibodies, Fourth Generation, with Reflexes (08/03/2024 3:00 PM EST) HIV AB/AG Nonreactive Nonreactive [facility] Comment:HIV-1 p24 Ag and/or HIV-1/HIV-2 Ab not detected.A test result that is nonreactive does not exclude thepossibility of exposure to or infection with HIV-1 and/orHIV-2. Nonreactive results in this assay for individualswith prior exposure to HIV-1 and/or HIV-2 may be due toantigen and antibody levels that are below the limit ofdetection of this assay.The Moneylib HIV Ag/Ab Combo assay result andsupplemental assay results should be interpreted inconjunction with the patient's clinical presentation,history and other laboratory results. If the results areinconsistent with clinical evidence, additional testing issuggested to confirm the result. Blood Venous blood specimen / Unknown 08/03/2024 3:00 PM EST 08/03/2024 4:07 PM EST us Jovanny Marsh MD LAB BLOOD ORDERABLES Final Resul t [facility] [address] [place] [address] [phone] from Last 3 Months or Most Recently Relevant to Health Maintenance [place] [address] [place] [address] C3
--- OUTSIDE RECORDS SUMMARY | 2025-06-27 00:47 | XMS_ITS | Encounter Summary ---
Author Organization [facility] Address [address] [place] [address] Phone Care Team Providers Care Music Teacher Name Role Phone Marcelino Nath MD Primary Care Provider [phone] Encounter Details Date Type Department Care Team (Late st Contact Info) Description 03/03/2017 Conversion Encounter [facility] [address] [place] [address] Social History Tobacco Use Types Packs/Day Years [...] on filedocumented in this encounter Care Teams Music Teacher Relationship Specialty Start Date End Date Marcelino Nath MD [address] [place] [address] PCP - General 02/25/17 10/19/22 documented as of this encounter
== END 2025-06-26 16:50 | disposition home or self-care (01) ==
LOC: HO.HCC 16:05
PROVIDERS: PCP Internal Medicine; Visit Provider Clinical Nurse Specialist Psychiatric/Mental Health
DX: F10.20 Alcohol dependence, uncomplicated (principal); Z51.81 Encounter for therapeutic drug level monitoring
CPT/HCPCS: 99213

== ENCOUNTER → 2025-06-26 16:05 | Outpatient (BNVA) | payer OTHER, MEDICAID, SELFPAY | PROVIDERS: PCP Internal Medicine; Visit Provider Clinical Nurse Specialist Psychiatric/Mental Health | DX: F10.20 Alcohol dependence, uncomplicated (principal); Z51.81 Encounter for therapeutic drug level monitoring | CPT/HCPCS: 80307; 99212 ==

== ENCOUNTER 2025-06-27 15:15 | Emergency (ER) | payer MEDICAID, SELFPAY ==
[2025-06-27 15:28] VITALS: BP 114/86; PULSE 122; RESP 18; TEMP 36.7; O2SAT 97; BMI 31.0
--- NOTE | 2025-06-27 15:29 | ED.ALCOHOL ---
HPI - Alcohol General Chief Complaint: ETOH/Substance Use Stated Complaint: etoh withdrawl Time Seen by Provider: 06/27/25 15:58 History of Present Illness ED Provider: Debi Blake NP HPI narrative: 30-year-old male medical history significant for alcohol use disorder with a proximally 20 nips daily times 10 years, MDD, presents to the ED for evaluation reporting alcohol withdrawal. Patient reports shaking, some nausea. Last drink was yesterday evening. He denies any SI, HI. Denies any hallucinations. No history of alcohol withdrawal seizures. He would like to stop drinking at this time. He thought he could manage his withdrawal at home, but expresses concern as previously he has had episodes of delirium and confusion. He denies any chest pain or pressure, shortness of breath, abdominal pain, palpitations. No headache, visual changes. No bloody or bilious vomiting. No black or bloody stool. No urinary symptoms. Related Data Previous Rx's ?Medication ?Instructions ?Recorded buspirone 5 mg tablet 5 mg PO BID 30 days #60 tabs 06/26/25 folic acid 1 mg tablet 1 mg PO DAILY 90 days #90 tabs 06/26/25 naltrexone 50 mg tablet 50 mg PO DAILY 30 days #30 tabs 06/26/25 thiamine mononitrate (vit B1) 100 100 mg PO DAILY 90 days #90 tabs 06/26/25 mg tablet Allergies Allergy/AdvReac Type Severity Reaction Status Date / Time No Known Allergies Allergy Verified 06/27/25 15:31 Review of Systems Review of Systems: ROS is otherwise negative unless mentioned in HPI. [facility] Past Medical History Medical History Depression Acute anxiety Social History Social History Household Members: Significant Other and Children Housing: Apartment Do you presently have visiting nurse or other home services: No Alcohol intake: current Alcohol intake frequency: 3 or more drinks per day Alcohol type: hard liquor Patient Tobacco Use Status: Former Tobacco user Tobacco use type: Cigarette and Smokeless Tobacco Years Smoked: 1 e-Cigarette/Vaping Use: Former Use Second Hand Smoke Exposure: No Substance Use Type: Marijuana Advance Directives: No Advance Directives Information Provided: No service: No Sexual orientation: Straight/Heterosexual Physical Exam ED Exam Exam: Nursing notes and vital signs reviewed. Constitutional: Well-appearing, NAD. Alert. Oriented X3. Eyes: Pupils equal, round and reactive to light. EOMI. ENT: Pharynx normal. Neck: Normal inspection. Neck supple. CVS: Normal heart rate and rhythm. Pulses normal. Respiratory: No respiratory distress. Breath sounds normal. Abdomen: Soft and nontender, nondistended. Skin: Skin warm and dry. Normal skin color. Extremities: No lower extremity edema. Neuro: Oriented X 3. No motor deficit. Vital Signs: Vital Signs - 24 hr 06/27/25 15:28 Temperature 98.1 F Pulse Rate 122 H Respiratory Rate 18 Blood Pressure 114/86 Pulse Oximetry 97 Oxygen Delivery Method Room Air BMI result Body Mass Index 31.0 Course Course Course Narrative: This is an RME: Additional HPI, ROS, PE not included below will be deferred to primary provider. RME assessment and note performed by: Silvia Silva PA-C This is a 38-knsm-whw-male who presents to the ER with concerns of etoh withdrawal. Last drink was last night. Typically drinks 15-20 nips per day. Patient has been admitted before for ETOH withdrawal. Patient tachycardic in the 120s. Patient to be brought back. Plan: Labs, EKG, further ER eval needed Medical Decision Making Medical Decision Making MDM Narrative: 4:08 PM 06/27/2025 (Debi Blake, [place]): Upon my initial assessment of this patient, he is alert, oriented, answering all questions appropriately. Last drink was last night, reportedly drank approximately 20 nips. He has mild tremors to the bilateral hands, does report some nausea, however there was no confusion, alteration in mentation. He was tachycardic upon arrival to triage, likely in the setting of alcohol withdrawal and mild dehydration, I have no concern for sepsis. We will obtain labs including alcohol level, drug screen, administer fluid bolus and begin phenobarbital regimen for alcohol withdrawal, oral vitamins and reassess. Denies history of alcohol withdrawal seizures. Patient denies interest in detox centers and would like to self withdrawal at home, but was unable to do so, as well as reporting fear from previous episodes. Patient has been drinking for approximately 10 years. 4:50 PM: Upon reassessment, his vitals have significantly improved. His heart rate is in the 80s. He feels much better after the phenobarbital. He is agreeable to speaking with the care team for possible detox place him. I ordered this. 5:40 PM: The patient was seen by the care team. The patient reportedly met with the [facility] yesterday, he was started on naltrexone and anxiety medication. He has a follow up appointment with them next week. He was also referred him to [facility] for outpatient therapy. He was therfore cleared by the care team in the ED today. He was offered detox placement, but patient has declined detox placement. Does not want detox. He is currently medically stable and does not require inpatient admission for alcohol withdrawal, as I did consider because he was initially mildly tachycardic, but this has since resolved even before fluids. He has no tremors. Resolved since small dose of phenobarbital. He is alert and oriented. No visual, tactile hallucinations or delusions. Negative alcohol level. He is agreeable to be discharged home. We engaged in shared-decision making and he would like to contact detox facilities on an outpatient basis. He has adequate resources outpatient for detox if he chooses to go there, but tells me he had a negative experience at [facility] and does not want to go to that specific facility. He is agreeable to try the facilities from home. He will return precautions to the ED. Patient is agreeable. Differential Diagnosis Differential Diagnoses: The differential diagnosis associated with the presentation includes Alcohol withdrawal, withdrawal symptoms, withdrawal seizure Admission/Observation Consideration of admission/observation: Escalation of care including admission/observation considered Lab Data MDM Lab Attestation statement: I reviewed the patient's lab results. 06/27/25 16:02 06/27/25 16:02 Labs: Lab Results 06/27/25 Range/Units 16:02 WBC 12.3 H (4.8-10.8) X10*3/uL RBC 5.25 (4.60-5.80) X10*6/uL Hgb 16.2 (14.0-18.0) g/dl Hct 46.7 (42.0-52.0) % MCV 89.0 (80.0-98.0) fL MCH 30.9 (27.0-33.0) pg MCHC 34.7 (31.0-36.0) g/dl RDW 11.5 (11.0-16.0) % Plt Count 256 D (160-400) X10*3/uL MPV 11.4 (9.4-12.4) fL Immature Gran % (Auto) 0.3 (0.0-0.4) % Neut % (Auto) 87.6 H (45-73) % Lymph % (Auto) 6.8 L (20-40) % [place] % (Auto) 5.0 (2-11) % Eos % (Auto) 0.1 (0-4) % Baso % (Auto) 0.2 (0-2) % Lymph # (Auto) 0.8 L (1.2-4.9) X10*3/uL [place] # (Auto) 0.6 (0.1-1.2) X10*3/uL Eos # (Auto) 0.0 (0.0-0.4) X10*3/uL Baso # (Auto) 0.0 (0.0-0.2) X10*3/uL Abs Immat Gran (auto) 0.04 H (0.00-0.03) X10*3/uL Absolute Neuts (auto) 10.8 H (2.0-8.3) x10*3/uL Absolute Nucleated RBC 0.000 (0.0-0.012) X10*3/uL Nucleated RBC % (auto) 0.0 (0.0-0.2) /100WBC Sodium 141 (135-145) mmol/L Potassium 4.6 (3.3-5.1) mmol/L Chloride 109 H (96-108) mmol/L Carbon Dioxide 25 (22-29) mmol/L Anion Gap 12 (12-20) BUN 14 (9-16) mg/dL Creatinine 0.99 (0.5-1.4) mg/dL Estim Creat Clear Calc 124.1 Estimated GFR > 60 Random Glucose 95 (60-115) mg/dL Calcium 9.6 (8.4-10.2) mg/dL Total Bilirubin 0.5 (0.0-1.0) mg/dL AST 27 (5-37) U/L ALT 22 (0-40) U/L Alkaline Phosphatase 89 (39-117) U/L Total Protein 7.8 (6.5-8.0) g/dL Albumin 5.0 (3.5-5.0) g/dL Lipase 13 (8-78) U/L Hold Green Top See Note Salicylates < 5.0 L (15-30) mg/dL Acetaminophen < 3 (<30) mcg/mL Ethyl Alcohol < 10 mg/dL Independent Interpretation I performed an independent interpretation of an: EKG Interpretation: Rate: 92 Rhythm: NSR [place]: 54 Normal P waves. Normal [place]. Normal QRS complex. ST T wave : no dep, elev qTC: 425 prior studies:similar The study has been interpreted contemporaneously by me. Independent Historian None External Record Review External record reviewed: Other (prior ER notes) Chronic Conditions Patient?s care impacted by: Other (Alcoholism) Social Determinants Patient?s care significantly limited by Social Determinants of Health including: Alcoholism and drug addiction in family and Problems related to primary support group Medications Administered Discontinued Medications Generic Name Dose Route Start Last Admin Trade Name Bradenq PRN Reason Stop Dose Admin Folic Acid 1 mg 06/27/25 16:07 06/27/25 16:18 Folic Acid 1 Mg Tablet PO 06/27/25 16:08 1 mg ONCE ONE Administration Sodium Chloride 1,000 mls @ 999 mls/hr 06/27/25 15:59 06/27/25 16:09 Ns IV 06/27/25 16:59 999 mls/hr .Q1H1M ONE Administration Phenobarbital Sodium 285 mg 06/27/25 17:00 06/27/25 16:17 Phenobarbital Sodium 130 Mg/Ml Im Once IM 06/27/25 17:01 285 mg ONCE ONE Administration Protocol Thiamine HCl 100 mg 06/27/25 16:07 06/27/25 16:18 Thiamine Hcl 100 Mg Tablet PO 06/27/25 16:08 100 mg ONCE ONE Administration Discharge Plan Discharge Clinical Impression: Alcohol use disorder Patient Disposition: Home, Self-Care Instructions: Alcohol Withdrawal (DC), Alcohol Use Disorder (ED) Additional Instructions: As we discussed, you were seen in the ER today for evaluation of alcohol withdrawal. Your last drink was yesterday evening. Upon arrival you had mild tremors of the hands bilaterally. We gave you a small dose of phenobarbital, medication used for withdrawal symptoms. The symptoms completely resolved. You were seen by the care team, who gave you resources for detox placement. You were offered detox placement but have declined at this time. We engaged in shared decision-making, and you would prefer to contact a detox placement on an outpatient basis. Please do this as soon as possible. With any worsening complaints at any time, please return to the ED for further assessment. Prescriptions: No Action buspirone 5 mg tablet 5 mg PO BID 30 Days Qty: 60 0RF Rx Instructions: Take 1 tablet twice per day naltrexone 50 mg tablet 50 mg PO DAILY 30 Days Qty: 30 0RF Rx Instructions: Take 1/2 tablet for 4 days then 1 tablet daily folic acid 1 mg tablet 1 mg PO DAILY 90 Days Qty: 90 0RF Rx Instructions: Take 1 tablet daily thiamine mononitrate (vit B1) 100 mg tablet 100 mg PO DAILY 90 Days Qty: 90 0RF Rx Instructions: Take 1 tablet daily Referrals: [facility] Family Medicine [Provider Group, Family Practice] Print Language: [place] Citizen
--- NOTE | 2025-06-27 15:32 | ECG_ITS ---
Test Reason : TACHY Blood Pressure : */* mmHG Vent. Rate : 92 BPM Atrial Rate : 92 BPM P-R Int : 130 ms QRS Dur : 86 ms QT Int : 344 ms P-R-T Axes : 54 8 22 degrees QTcB Int : 425 ms Normal sinus rhythm Possible Inferior infarct , age undetermined Abnormal ECG When compared with ECG of 08-Nov-2024 15:23, No significant change was found Referred By: Silvia Silva Electronically Signed By: TABITHA JOHNSON MD
--- NOTE | 2025-06-27 15:50 | PC.NURSE ---
Patient presents to ED with ETOH withdrawal. Patient states last drink was last night and he typically drinks 15-20 nips/ day. States he has been through withdraw before and experiences delirium. VSS. Patient placed on monitor with IV 20g placed in left FA. First CIWA score of 12. First loading dose of pheno given IM. Patient tolerated well.
[2025-06-27 16:07] LABS: MANUAL DIFF FLAG NO
[2025-06-27 16:17] LABS: Hematocrit 46.7 % (42.0-52.0); Hemoglobin 16.2 g/dl (14.0-18.0); Imm Gran Pct Auto 0.3 % (0.0-0.4); Mean Corpuscular HGB Conc 34.7 g/dl (31.0-36.0); Mean Corpuscular Hemoglobin 30.9 pg (27.0-33.0); Mean Corpuscular Volume 89.0 fL (80.0-98.0); NRBC Pct Auto 0.0 /100WBC (0.0-0.2); Platelet Count 256 X10*3/uL (160-400); Red Blood Count 5.25 X10*6/uL (4.60-5.80); White Blood Count 12.3 X10*3/uL (4.8-10.8)
[2025-06-27] MEDS: PHENobarbitaL sodium 130 MG/ML IM ONCE 285 MG IM (16:17)
[2025-06-27 16:18] LABS: Imm Gran Abs Auto 0.04 X10*3/uL (0.00-0.03); Lymphocytes Absolute Auto 0.8 X10*3/uL (1.2-4.9); NRBC Abs Auto 0.000 X10*3/uL (0.0-0.012)
[2025-06-27 16:30] LABS: Acetaminophen LAB < 3 mcg/mL (<30); Salicylate < 5.0 mg/dL (15-30)
[2025-06-27 16:39] LABS: Alanine Aminotransferase 22 U/L (0-40); Albumin Level 5.0 g/dL (3.5-5.0); Alkaline Phosphatase 89 U/L (39-117); Anion Gap 12 (12-20); Aspartate Amino Transferase 27 U/L (5-37); Blood Urea Nitrogen 14 mg/dL (9-16); Calcium 9.6 mg/dL (8.4-10.2); Carbon Dioxide 25 mmol/L (22-29); Chloride 109 mmol/L (96-108); Creatinine Clr Calc Pharmacy 124.1; Estimated Glomerular Filt Rate > 60; Lipase 13 U/L (8-78); Potassium 4.6 mmol/L (3.3-5.1); Sodium 141 mmol/L (135-145); Total Protein 7.8 g/dL (6.5-8.0)
[2025-06-27 18:26] VITALS: BP 128/80; PULSE 92; RESP 14; TEMP 36.6; O2SAT 97
--- OUTSIDE RECORDS SUMMARY | 2025-06-27 23:06 | XMS_ITS | Encounter Summary ---
Author Organization [facility] Address [address] [place] [address] Phone Care Team Providers Care Broadloom Weaver Name Role Phone Marcelino Nath MD Primary Care Provider [phone] Encounter Details Date Type Department Care Team (Late st Contact Info) Description 08/26/2011 Documentation [facility] [address] [place] [address] Family Medicine, Physician [address] [place], [place] [id number] Social History Tobacco Use Types Packs/Day Years [...] on filedocumented in this encounter Care Teams Broadloom Weaver Relationship Specialty Start Date End Date Marcelino Nath MD [address] [place] [address] [place] [address] PCP - General 02/25/17 10/19/22 documented as of this encounter
--- OUTSIDE RECORDS SUMMARY | 2025-06-27 23:06 | XMS_ITS | Encounter Summary ---
Author Organization [facility] Address [address] [place] [address] Phone Care Team Providers Care Embedded Engineer Name Role Phone Marcelino Nath MD Primary Care Provider [phone] Encounter Details Date Type Department Care Team (Late st Contact Info) Description 03/03/2017 Conversion Encounter [facility] [place] [address] [place] [address] Social History Tobacco Use Types Packs/Day Years [...] on filedocumented in this encounter Care Teams Embedded Engineer Relationship Specialty Start Date End Date Marcelino Nath MD [address] [place] [address] PCP - General 02/25/17 10/19/22 documented as of this encounter
--- OUTSIDE RECORDS SUMMARY | 2025-06-27 23:06 | XMS_ITS | Clinical Summary ---
Author Organization [facility] Address [address] [place] [phone] Phone Care Team Providers Care Clinical Recruiter Name Role Phone Unavailable Primary Care Provider [...] / Migraines Other Family history of *Sudden /ID under 55, Family history of *Heart Disease, [...]
== END 2025-06-27 18:27 | disposition home or self-care (01) ==
PROVIDERS: Physician Assistant Medical; Emergency Provider Student in an Organized Health Care Education/Training Program
DX: F10.239 Alcohol dependence with withdrawal, unspecified (principal); R11.2 Nausea with vomiting, unspecified; R00.0 Tachycardia, unspecified; K70.2 Alcoholic fibrosis and sclerosis of liver; Z51.81 Encounter for therapeutic drug level monitoring; Y90.0 Blood alcohol level of less than 20 mg/100 ml; Z87.891 Personal history of nicotine dependence; Z79.899 Other long term (current) drug therapy
CPT/HCPCS: 36415; 80053; 80143; 80179; 80307; 83690; 85025; 93005; 96360; 96361; 96372; 99284; J2560; S9485

== ENCOUNTER → 2025-06-27 15:32 | Outpatient (BNV) | payer MEDICAID, SELFPAY | PROVIDERS: Emergency Provider Student in an Organized Health Care Education/Training Program; Visit Provider Internal Medicine Cardiovascular Disease | DX: R94.31 Abnormal electrocardiogram [ECG] [EKG] (principal); R00.0 Tachycardia, unspecified | CPT/HCPCS: 93010 ==